=== PATIENT | male | born 1935 | race Caucasian/White ===

== ENCOUNTER 2017-03-17 21:21 | Emergency (ER) | payer MEDICARE, OTHER ==
--- NOTE | 2017-03-17 22:50 | EDM.PDOC ---
ED HPI GENERAL MEDICAL PROBLEM - General Chief Complaint: Gastrointestinal Problem Stated Complaint: NO BOWEL MOVEMENT Time Seen by Provider: 03/17/17 22:49 - History of Present Illness INITIAL COMMENTS - FREE TEXT/NARRATIVE: 81-year-old male comes in complaining of constipation. Patient had back surgery a week ago he's been using quite a few hydrocodone he' s also been using stool softeners Priya lax however has not had a bowel movement in a week. This evening he did take one and one half bottles of magnesium citrate without any improvement. The patient has crampy pain sometimes getting quite uncomfortable with this. Patient denies any fevers chills nausea vomiting. He had difficulty voiding after surgery but this is no longer a problem. lower abdomen Pain Score (Numeric/FACES): 10 - Related Data Allergies Allergy/AdvReac Type Severity Reaction Status Date / Time naproxen [From Aleve] Allergy Rash Verified 03/17/17 23:07 Home Meds: Home Meds Diazepam [Valium] 5 mg PO QID PRN 03/17/17 [History] Docusate Sodium [Stool Softener] 100 mg PO DAILY 03/17/17 [History] Hydrocodone/Acetaminophen [Hydrocodon-Acetaminophen 5-325] 1 each PO Q6H PRN [History] Levothyroxine [Synthroid] 50 mcg PO ACBREAKFAST 03/17/17 [History] Magnesium Citrate [Citrate of Magnesia] 296 ml PO ONETIME 03/17/17 [History] Polyethylene Glycol 3350 [MiraLAX] 17 gm PO DAILY 03/17/17 [History] ED ROS GENERAL - Review of Systems Review Of Systems: See Below Constitutional: Reports: No Symptoms HEENT: Reports: No Symptoms Respiratory: Reports: No Symptoms Cardiovascular: Reports: No Symptoms Endocrine: Reports: No Symptoms GI/Abdominal: Reports: Abdominal Pain, Constipation. Denies: Diarrhea, Nausea, Vomiting : Reports: No Symptoms ED EXAM, GI/ABD - Physical Exam Exam: See Below Exam Limited By: No Limitations General Appearance: Alert, No Apparent Distress Head: Atraumatic, Normocephalic Neck: Normal Inspection, Supple, Non-Tender, Full Range of Motion Respiratory/Chest: No Respiratory Distress, Lungs Clear, Normal Breath Sounds Cardiovascular: Regular Rate, Rhythm, No Edema, No Murmur GI/Abdominal Exam: Normal Bowel Sounds, Soft, Other (He has vague left lower quadrant discomfort no rigidity rebound or guarding) Course - Vital Signs Last Recorded V/S: Last Vital Signs Temp 36.6 C 03/17/17 21:40 Pulse 84 03/17/17 21:40 Resp 18 03/17/17 21:40 BP 137/68 03/17/17 21:40 Pulse Ox 94 L 03/17/17 21:40 - Orders/Labs/Meds Orders: Active Orders 24 hr Category Date Time Status Enema [RC] ASDIRECTED Care 03/17/17 23:42 Active RT Incentive Spirometry [RC] ASDIRECTED Care 03/18/17 04:35 Active Abdomen 1V Upright [CR] Stat Exams 03/18/17 01:34 Taken Abdomen 2V AP Flat Upright [CR] Stat Exams 03/17/17 23:00 Taken Abdomen Pelvis w Cont [CT] Stat Exams 03/18/17 01:52 Taken Lactated Ringers [Ringers, Lactated] 1,000 ml Med 03/18/17 02:00 Active IV ASDIRECTED Medication Orders Lactated Ringer's (Ringers, Lactated) 1,000 mls @ 125 mls/hr IV ASDIRECTED NANDA Last Admin: 03/18/17 03:56 Dose: 125 mls/hr Labs: Laboratory Tests 03/17/17 03/17/17 03/18/17 Range/Units 20:15 22:15 00:56 WBC 8.04 (4.23-9.07) K/mm3 RBC 3.32 L (4.63-6.08) M/mm3 Hgb 10.6 L (13.7-17.5) gm/L Hct 32.3 L (40.1-51.0) % MCV 97.3 H (79.0-92.2) fl MCH 31.9 (25.7-32.2) pg MCHC 32.8 (32.2-35.5) g/dl RDW Std Deviation 46.4 H (35.1-43.9) fL Plt Count 282 (163-337) K/mm3 MPV 10.1 (9.4-12.3) fl Neutrophils % (Manual) 46 (40-60) % Band Neutrophils % 0 (0-10) % Lymphocytes % (Manual) 48 H (20-40) % Atypical Lymphs % 0 % Monocytes % (Manual) 4 (2-10) % Eosinophils % (Manual) 2 (0.8-7.0) % Basophils % (Manual) 0 L (0.2-1.2) Platelet Estimate Adequate RBC Morph Comment Normal Sodium 139 (136-145) mEq/L Potassium 3.9 (3.5-5.1) mEq/L Chloride 103 (98-107) mEq/L Carbon Dioxide 29 (21-32) mEq/L Anion Gap 10.9 (5-15) BUN 14 (7-18) mg/dL Creatinine 1.2 (0.7-1.3) mg/dL Est Cr Clr Drug Dosing 53.16 mL/min Estimated GFR (MDRD) 58 (>60) mL/min BUN/Creatinine Ratio 11.7 L (14-18) Glucose 109 (83-115) mg/dL Calcium 8.7 (8.5-10.1) mg/dL Total Bilirubin 0.9 (0.2-1.0) mg/dL AST 86 H (15-37) U/L ALT 88 H (16-63) U/L Alkaline Phosphatase 305 H (46-116) U/L Total Protein 6.4 (6.4-8.2) g/dl Albumin 2.7 L (3.4-5.0) g/dl Globulin 3.7 gm/dL Albumin/Globulin Ratio 0.7 L (1-2) Urine Color Sylvia H (Yellow) Urine Appearance Clear (Clear) Urine pH 7.5 (5.0-8.0) Ur Specific Marty 1.020 (1.005-1.030) Urine Protein 1+ H (Negative) Urine Glucose (UA) Negative (Negative) Urine Ketones Negative (Negative) Urine Occult Blood Negative (Negative) Urine Nitrite Negative (Negative) Urine Bilirubin Negative (Negative) Urine Urobilinogen >=8.0 H (0.2-1.0) Ur Leukocyte Esterase Negative (Negative) Urine RBC 0-5 (0-5) /hpf Urine WBC 0-5 (0-5) /hpf Ur Epithelial Cells 0-5 (0-5) /hpf Amorphous Sediment Few H (NOT SEEN) /hpf Urine Bacteria Few (FEW) /hpf Urine Mucus Few (FEW) /hpf Meds: Medications Generic Name Dose Route Start Last Admin Trade Name Freq PRN Reason Stop Dose Admin Lactated Ringer's 1,000 mls @ 125 mls/hr 03/18/17 02:00 03/18/17 03:56 Ringers, Lactated IV 125 mls/hr ASDIRECTED NANDA Administration Discontinued Medications Generic Name Dose Route Start Last Admin Trade Name Yolanda PRN Reason Stop Dose Admin Fentanyl 50 mcg 03/18/17 01:53 03/18/17 02:30 Sublimaze IVPUSH 03/18/17 01:54 50 mcg ONETIME ONE Administration Lactated Ringer's 500 mls @ 999 mls/hr 03/18/17 01:54 03/18/17 02:30 Ringers, Lactated IV 03/18/17 02:24 999 mls/hr .BOLUS ONE Administration Iopamidol 120 ml 03/18/17 03:17 03/18/17 03:48 Isovue-300 (61%) IVPUSH 03/18/17 03:18 120 ml ONETIME ONE Administration - Re-Assessments/Exams Free Text/Narrative Re-Assessment/Exam: 03/17/17 23:06 Patient is not ill, however, he is having some discomfort, vital signs stable afebrile we will bladder scan him check a KUB and upright anticipate treatment for constipation 03/17/17 23:43 KUB and upright show multiple dilated loops of large and small bowel most likely representing an ileus he has a large amount of stool in the rectum. According to radiology distal large bowel obstruction cannot be ruled out before pursuing further imaging will try soapsuds enema. And obtain labs. 03/18/17 00:49 The patient had 2 BMs on his own initially he was reluctant to an enema he's not certain how much stool in the past it was somewhat watery with some hard chunks in it he estimates about a cup per BM he is still uncomfortable but now consents to an enema. 03/18/17 01:35 Patient had a large BM mostly liquid after the enema he is having some hip pain in his belly pain seems to be improved he was given 5 mg of Valium from his home stock as he normally takes is for spasm. His last dose was this last morning. We'll recheck KUB and upright 03/18/17 01:52 Repeat KUB not significantly better we'll pursue CAT scan 03/18/17 04:59 CAT scan showed fluid filled colon as well as mild prominent loops of small bowel bowel still consistent with an ileus also interesting note is the patient' s got small left-sided pleural effusion with atelectasis. The patient was given I asked the seem to help quite a bit as at times his saturation would drop a little bit. Patient is a large renal cyst on the left kidney. The patient recently had a very large BM and feels much better at this time. We will discharge. Prior to this BM we discussed about admission the patient really wants to go home. Case discussed with Dr. Ba will make sure the patient's getting adequate Priya lax push fluids clear liquid diet for the next 24 hours then slowly advance as tolerated. Departure - Departure Time of Disposition: 05:12 Disposition: Home, Self-Care 01 Clinical Impression: Constipation, Postoperative ileus - Discharge Information Referrals: Giovanni Barton MD [Primary Care Provider] - Forms: ED Department Discharge Additional Instructions: Return to the emergency room with any questions problems worsening symptoms. Increase the Priya lax to 1 full tablespoon in 8-10 ounces of water, take 2 glasses every morning. Continue the stool softener, Colace 100 mg 3 times a day. Clear liquid diet for the next 24 hours then slowly advance as tolerated. Decrease your Kennedy, the hydrocodone, the pain pill, to only as needed. Try a half tablet to see if this will work to decrease the overall daily dosage hydrocodone because this medication can cause severe constipation. Follow-up with your regular physician here in [facility] for recheck. Discuss with him the need for a overnight oximetry study as ear O2 saturation would drop here in the emergency room. Also discuss the small fluid collection below your left lung. And the atelectasis, or the non-expanded lung tissue seen on the CAT scan. You have been given an incentive spirometer here in the emergency room. 10 repetitions every 2 hours while awake. - My Orders Last 24 Hours: My Active Orders 03/17/17 23:00 Abdomen 2V AP Flat Upright [CR] Stat 03/17/17 23:42 Enema [RC] ASDIRECTED 03/18/17 01:34 Abdomen 1V Upright [CR] Stat 03/18/17 01:52 Abdomen Pelvis w Cont [CT] Stat 03/18/17 02:00 Lactated Ringers [Ringers, Lactated] 1,000 ml IV ASDIRECTED 03/18/17 04:35 RT Incentive Spirometry [RC] ASDIRECTED - Assessment/Plan Last 24 Hours: My Active Orders 03/17/17 23:00 Abdomen 2V AP Flat Upright [CR] Stat 03/17/17 23:42 Enema [RC] ASDIRECTED 03/18/17 01:34 Abdomen 1V Upright [CR] Stat 03/18/17 01:52 Abdomen Pelvis w Cont [CT] Stat 03/18/17 02:00 Lactated Ringers [Ringers, Lactated] 1,000 ml IV ASDIRECTED 03/18/17 04:35 RT Incentive Spirometry [RC] ASDIRECTED
[2017-03-18] MEDS ORDERED: fentaNYL 100 MCG/2 ML SDV IVPUSH ONE (01:53)
[2017-03-18] MEDS ORDERED: Lactated Ringers 500 ML IV ONE (01:54)
[2017-03-18] MEDS ORDERED: Lactated Ringers 1,000 ML IV SCH (02:00)
[2017-03-18] MEDS ORDERED: Iopamidol 612 MG/ML 150 ML Bottle IVPUSH ONE (03:17)
--- NOTE | 2017-03-18 07:08 | CT ---
CT abdomen and pelvis Technique: Multiple axial sections were obtained from above the dome of the diaphragm inferiorly through the pubic symphysis. Intravenous and oral contrast has been given. Delayed images were obtained through the bladder. Comparison: Previous abdominal x-rays performed earlier on the same day. Findings: Small left-sided pleural effusion is seen. Mild atelectasis is noted within both lung bases. Liver shows no focal parenchymal abnormality. Calcified gallstones are seen within the gallbladder. Adrenal glands show no nodule. Kidneys show no hydronephrosis. Cyst noted within the left kidney measuring approximately 6.7 cm. Pancreas is within normal limits. Aorta shows atherosclerotic change without aneurysmal dilatation. No retroperitoneal adenopathy or mesenteric abnormalities are seen. No pelvic mass or adenopathy is seen. Fluid and air noted within the colon compatible with ileus. No findings of obstruction are seen with contrast noted within the colon. No small bowel dilatation seen on this exam. Previous lumbar spine surgery is noted. Skin aguilar are present posteriorly. 3 mm stone noted within the bladder not associated with the ureters. Impression: 1. Fluid and gas within the colon compatible with ileus. No small bowel dilatation is seen on this exam. Contrast noted within the colon ruling out obstruction. 2. 3 mm calcification within the bladder. 3. Gallstones. 4. Other incidental findings as noted above. Diagnostic code #3 Agree with preliminary report issued by [facility] [employer] ([facility] preliminary report dictated on 03/18/17, 5:00 AM Central Time)
--- NOTE | 2017-03-18 07:08 | CR ---
Abdomen: Supine and upright views of the abdomen were obtained. Comparison: No prior abdominal x-ray. Dilated loops of colon and small bowel are seen. Previous lumbar spine surgery is noted. Degenerative change seen within the spine. Surgical clips seen within the pelvis. Small amount of stool noted within the rectum. No free air is seen. Skin aguilar are present. Impression: 1. Gas dilated colon as well as small bowel. Findings most likely represent ileus, please correlate if this matches clinically. 2. Other incidental findings. Diagnostic code #3 Agree with preliminary report issued by [facility] ([facility] preliminary report dictated on 03/18/17, 12:33 AM Central Time)
--- NOTE | 2017-03-18 07:08 | CR ---
Abdomen: Upright view of the abdomen was obtained. Gas dilated colon is seen as well as several slightly prominent gas-filled loops of small bowel. Air-fluid levels seen within distal small bowel. No free air is seen. Degenerative change is seen within the right hip. Midline surgical aguilar are seen. Previous lumbar spine surgery is noted. Degenerative change within the spine is seen. Calcifications are seen within the pelvis compatible with phleboliths. Impression: 1. Air-fluid levels in mildly prominent gas-filled loops of small bowel and colon. As mentioned previously, findings are most suspicious for ileus. 2. Other incidental findings. Diagnostic code #3
== END 2017-03-18 05:25 | disposition home or self-care (01) ==
LOC: JD.ED 21:21
DX: K56.7 Ileus, unspecified (principal); K59.00 Constipation, unspecified
CPT/HCPCS: 36415; 74000; 74020; 74177; 80053; 81001; 85025; 96361; 96374; 99284; J3010; J7120; Q9967

== ENCOUNTER 2018-01-29 10:22 | Inpatient (IN) | payer MEDICARE ==
[~2018-01-29 10:22] MED LIST: Acetaminophen 325 MG Tab PO SCH; Bisacodyl 5 MG Tab PO PRN; Lactated Ringers 1,000 ML IV SCH; Lidocaine 1%/Sod Bicarbonate in NS 8.4% 1 ML Syringe IDERM PRN; Magnesium Hydroxide 400 MG/5 ML Susp 30 ML Cup PO PRN; Morphine 2 MG/ML Syringe IVPUSH PRN; Naloxone 0.4 MG/ML SDV IVPUSH PRN; Ondansetron 4 MG/2 ML SDV IVPUSH PRN; Pregabalin 25 MG Cap PO SCH; Sennosides 8.6 MG Tab PO PRN; Sodium Chloride 0.9% 10 ML Syringe FLUSH PRN; oxyCODONE ER 10 MG TAB.ER PO SCH
[2018-01-29] MEDS ORDERED: Vancomycin 1 GM SDV ONE (11:24)
[2018-01-29] MEDS ORDERED: Midazolam 1 MG/ML 2 ML SDV ONE (11:25)
[2018-01-29] MEDS ORDERED: Propofol 200 MG/20 ML SDV ONE (11:29)
[2018-01-29] MEDS ORDERED: ceFAZolin 1 GM Vial ONE (11:29)
[2018-01-29] MEDS ORDERED: Dexamethasone 4 MG/ML SDV ONE ×2 (11:29→13:41)
[2018-01-29] MEDS ORDERED: fentaNYL 250 MCG/5 ML SDV ONE (11:29)
[2018-01-29] MEDS ORDERED: Lactated Ringers 1,000 ML ONE ×3 (11:29→14:01)
[2018-01-29] MEDS ORDERED: Ondansetron 4 MG/2 ML SDV ONE (11:29)
[2018-01-29] MEDS ORDERED: Lidocaine 1% 4 ML ONE (11:30)
[2018-01-29] MEDS ORDERED: Ketamine 500 mg/10 ML MDV ONE (11:30)
--- NOTE | 2018-01-29 11:50 | PCM.PREANE ---
Preanesthetic Assessment - Procedure Proposed Procedure: Right total hip arthroplasty with bilateral ankle cortisone injections - Anesthesia/Transfusion/Family Hx Anesthesia History: Prior Anesthesia Without Reaction Family History of Anesthesia Reaction: No Transfusion History: No Prior Transfusion(s) Additional History: Lubmosacral spinal stenosis - Review of Systems General: No Symptoms Pulmonary: No Symptoms Cardiovascular: Other (CAD indicated from high CT CA++ score, stress test in 2014 negative, EF 65%) Gastrointestinal: No Symptoms Neurological: Weakness (bilateral equal leg weakness from prior to back surgery ), Other (Lumbar fusion in 2017, scoliosis, Lumbosarcal spinal stenosis ) Other: Reports: None, Thyroid Problems (hypothyroid ) - Physical Assessment NPO Status Date: 01/29/18 NPO Status Time: 03:00 Pulse: 66 O2 Sat by Pulse Oximetry: 92 Respiratory Rate: 20 Blood Pressure: 139/90 Temperature: 36.9 C Height: 1.78 m Weight: 106.594 kg ASA Class: 3 Mental Status: Alert & Oriented x3 Airway Class: Mallampati = 3 Dentition: Reports: Normal Dentition, Implants (5 upper implants including ) Thyro-Mental Finger Breadths: 3 Mouth Opening Finger Breadths: 3 ROM/Head Extension: Full Lungs: Clear to Auscultation, Normal Respiratory Effort Cardiovascular: Regular Rate, Regular Rhythm - Lab Values: Laboratory Last Values C-Reactive Protein 0.6 mg/dL (<1.0) 01/22/18 13:53 MRSA (PCR) Negative 01/13/18 16:20 - Allergies Allergies/Adverse Reactions: Allergies Allergy/AdvReac Type Severity Reaction Status Date / Time naproxen [From Aleve] Allergy Rash Verified 03/17/17 23:07 - Blood Blood Available: No Product(s) Available: None - Anesthesia Plan Pre-Op Medication Ordered: None - Acknowledgements Anesthesia Type Planned: General Anesthesia (per patient request. Also will use coude urinary catheter if possible. ) Pt an Appropriate Candidate for the Planned Anesthesia: Yes Alternatives and Risks of Anesthesia Discussed w Pt/Guardian: Yes Pt/Guardian Understands and Agrees with Anesthesia Plan: Yes PreAnesthesia Questionnaire - Past Health History Medical/Surgical History: Denies Medical/Surgical History Musculoskeletal History: Reports: Back Pain, Chronic Endocrine/Metabolic History: Reports: Hypothyroidism - Past Surgical History Musculoskeletal Surgical History: Reports: Knee Replacement, Other (See Below) Other Musculoskeletal Surgeries/Procedures:: back surgery 03/11/17 - HOME MEDS Home Medications: Home Meds Diazepam [Valium] 5 mg PO QID PRN 03/17/17 [History] Docusate Sodium [Stool Softener] 100 mg PO DAILY 03/17/17 [History] Hydrocodone/Acetaminophen [Hydrocodon-Acetaminophen 5-325] 1 each PO Q6H PRN [History] Levothyroxine [Synthroid] 50 mcg PO ACBREAKFAST 03/17/17 [History] Magnesium Citrate [Citrate of Magnesia] 296 ml PO ONETIME 03/17/17 [History] Polyethylene Glycol 3350 [MiraLAX] 17 gm PO DAILY 03/17/17 [History] - CURRENT (IN HOUSE) MEDS Current Meds: Current Medications Acetaminophen (Tylenol) 975 mg PO ONETIME [facility] Stop: 01/29/18 18:00 Bisacodyl (Dulcolax) 5 mg PO DAILY PRN PRN Reason: Constipation Morphine Sulfate 8 mg/Epinephrine HCl 0.3 mg/Cefuroxime Sodium 750 mg/Sodium Chloride 27.9 ml 0 mg .XX ONETIME ONE Stop: 01/29/18 12:31 Cyclobenzaprine HCl (Flexeril) 10 mg PO TID PRN PRN Reason: Spasms Docusate Sodium (Colace) 100 mg PO BID NANDA Famotidine (Pepcid) 20 mg PO Q12H [facility] Lactated Ringer's (Ringers, Lactated) 1,000 mls @ 125 mls/hr IV ASDIRECTED [facility] Last Admin: 01/29/18 11:10 Dose: 125 mls/hr Cefazolin Sodium/Dextrose 2 gm (/ Premix) 50 mls @ 100 mls/hr IV Q8H [facility] Stop: 01/29/18 23:14 Lidocaine/Sodium Bicarbonate (Buffered Lidocaine 1% In Ns 8.4%) 0.25 ml IDERM ONETIME PRN PRN Reason: Prior to IV Start Stop: 01/29/18 16:00 Last Admin: 01/29/18 11:09 Dose: 0.25 ml Magnesium Hydroxide (Milk Of Magnesia) 30 ml PO BID PRN PRN Reason: Constipation Morphine Sulfate (Morphine) 2 mg IVPUSH Q2H PRN PRN Reason: Breakthrough Pain Naloxone HCl (Narcan) 0.1 mg IVPUSH Q5M PRN PRN Reason: Oversedation Ondansetron HCl (Zofran) 4 mg IVPUSH Q6H PRN PRN Reason: Nausea/Vomiting Oxycodone HCl (Oxycontin) 10 mg PO ONETIME [facility] Stop: 01/29/18 16:00 Oxycodone/Acetaminophen (Percocet 325-5 Mg) 1 - 2 tab PO Q4H PRN PRN Reason: Pain Pregabalin (Lyrica) 50 mg PO ONETIME [facility] Stop: 01/29/18 16:00 Rivaroxaban (Xarelto) 10 mg PO DAILY [facility] Senna (Senna) 8.6 mg PO BID PRN PRN Reason: Constipation Sodium Chloride (Saline Flush) 10 ml FLUSH ASDIRECTED PRN PRN Reason: Keep Vein Open Discontinued Medications Bupivacaine HCl (Marcaine 0.25%) Confirm Administered Dose 30 ml .ROUTE .STK- MED ONE Stop: 01/29/18 11:25 Cefazolin Sodium (Ancef) Confirm Administered Dose 2 gm .ROUTE .STK-MED ONE Stop: 01/29/18 11:25 Cefazolin Sodium (Ancef) Confirm Administered Dose 2 gm .ROUTE .STK-MED ONE Stop: 01/29/18 11:30 Dexamethasone (Dexamethasone) Confirm Administered Dose 4 mg .ROUTE .STK-MED ONE Stop: 01/29/18 11:30 Fentanyl (Sublimaze) Confirm Administered Dose 250 mcg .ROUTE .STK-MED ONE Stop: 01/29/18 11:30 Lactated Ringer's (Ringers, Lactated) Confirm Administered Dose 1,000 mls @ as directed .ROUTE .STK-MED ONE Stop: 01/29/18 11:30 Lidocaine HCl (Xylocaine-Mpf 1%) Confirm Administered Dose 4 mls @ as directed .ROUTE .STK-MED ONE Stop: 01/29/18 11:31 Iodine (Iodine 2% Mild Tincture) Confirm Administered Dose 30 ml .ROUTE .STK- MED ONE Stop: 01/29/18 11:25 Ketamine HCl (Ketalar) Confirm Administered Dose 500 mg .ROUTE .STK-MED ONE Stop: 01/29/18 11:31 Midazolam HCl (Versed 1 Mg/Ml) Confirm Administered Dose 2 mg .ROUTE .STK-MED ONE Stop: 01/29/18 11:26 Ondansetron HCl (Zofran) Confirm Administered Dose 4 mg .ROUTE .STK-MED ONE Stop: 01/29/18 11:30 Propofol (Diprivan 20 Ml) Confirm Administered Dose 400 mg .ROUTE .STK-MED ONE Stop: 01/29/18 11:30 Tranexamic Acid (Cyklokapron) Confirm Administered Dose 1,000 mg .ROUTE .STK- MED ONE Stop: 01/29/18 11:25 Vancomycin HCl (Vancomycin) Confirm Administered Dose 1 gm .ROUTE .STK-MED ONE Stop: 01/29/18 11:25
[2018-01-29] MEDS ORDERED: HYDROmorphone 0.5 MG/0.5 ML Syringe ONE ×2 (12:07→13:40)
[2018-01-29] MEDS ORDERED: Phenylephrine/Normal Saline 100 MCG/ML 10 ML Syringe ONE (13:40)
[2018-01-29] MEDS ORDERED: ePHEDrine/Normal Saline 25 MG/5 ML Syringe ONE ×2 (13:41→13:54)
[2018-01-29] MEDS ORDERED: Albuterol 6.7 GM Inhaler INH ONE (13:41)
[2018-01-29] MEDS ORDERED: Ondansetron 4 MG/2 ML SDV IVPUSH PRN (13:50)
[2018-01-29] MEDS ORDERED: fentaNYL 100 MCG/2 ML SDV IVPUSH PRN (13:50)
[2018-01-29] MEDS ORDERED: Albuterol 0.083% 2.5 MG/3 ML Neb Soln NEB PRN (13:50)
[2018-01-29] MEDS ORDERED: HYDROmorphone 0.5 MG/0.5 ML Syringe IVPUSH PRN (13:50)
[2018-01-29] MEDS ORDERED: diphenhydrAMINE 50 MG/ML SDV IVPUSH PRN (13:50)
[2018-01-29] MEDS: Bupivacaine 0.25% 30 ML SDV ONE ×4 (13:52→14:42)
[2018-01-29] MEDS: ceFAZolin 1 GM Vial ONE ×2 (13:53→14:11)
[2018-01-29] MEDS: Iodine/Sodium Iodide 2% Tincture 30 ML Bottle ONE ×2 (13:53→14:10)
[2018-01-29] MEDS: Morphine 8 MG, EPINEPHrine 0.3 MG, Cefuroxime 750 MG, Sodium Chloride 0.9% 27.9 ML ONE ×8 (13:57→14:16)
[2018-01-29] MEDS: Triamcinolone Acetonide 40 MG/ML 1 ML MDV ONE ×2 (13:59→14:42)
[2018-01-29] MEDS ORDERED: Hetastarch in NS 500 ML ONE (14:10)
[2018-01-29] MEDS ORDERED: Polyethylene Glycol 3350 Powder 17 GM Packet PO PRN (14:50)
--- NOTE | 2018-01-29 14:58 | PCM.POSTAN ---
POST ANESTHESIA ASSESSMENT - MENTAL STATUS Mental Status: Alert, Oriented - VITAL SIGNS Pulse Rate: 87 SaO2: 94 Resp Rate: 19 Blood Pressure: 131/71 Temperature: 36.7 C - RESPIRATORY Respiratory Status: Respiratory Rate WNL, Airway Patent, O2 Saturation Stable, Supplemental Oxygen - CARDIOVASCULAR CV Status: Pulse Rate WNL, Blood Pressure Stable - GASTROINTESTINAL GI Status: No Symptoms - PAIN Pain Score: 0 - POST OP HYDRATION Hydration Status: Adequate & Stable
[2018-01-29] MEDS ORDERED: Sildenafil 20 MG Tab PO SCH (15:00)
--- NOTE | 2018-01-29 15:51 | PCM.CONS ---
H&P History of Present Illness - General Date of Service: 01/29/18 Admit Problem/Dx: Admission Diagnosis/Problem Admission Diagnosis/Problem Osteoarthritis of hip Source of Information: Patient, Old Records, Provider History Limitations: Reports: No Limitations - History of Present Illness Initial Comments - Free Text/Narative: Hussein is an 82 yo male patient of Dr. Bailey who is post-operative day 0 of R HUI. Hospital medicine was consulted for post-operative medical care. At this time he is resting comfortably in bed. Pain is controlled. He denies any chest pain, shortness of breath, palpitations, nausea, or vomiting. He carries a history of : OA, Spinal Stenosis, Elevated PSA, Hypothyroid, HLD, LAD, Scoliosis. He is a nonsmoker. He is a full code. His primary care provider is Dr. Barton. Right Hip Pain Score (Numeric/FACES): 0 - Related Data Allergies/Adverse Reactions: Allergies Allergy/AdvReac Type Severity Reaction Status Date / Time naproxen [From Aleve] Allergy Rash Verified 03/17/17 23:07 Home Medications: Home Meds Hydrocodone/Acetaminophen [Hydrocodon-Acetaminophen 5-325] 1 each PO Q6H PRN [History] Levothyroxine [Synthroid] 50 mcg PO ACBREAKFAST 03/17/17 [History] Acetaminophen [Tylenol] 650 mg PO ASDIRECTED PRN 01/29/18 [History] Aspirin [Halfprin] 81 mg PO DAILY 01/29/18 [History] Polyethylene Glycol 3350 [Miralax] 1 dose PO DAILY PRN 01/29/18 [History] Sildenafil Citrate [Sildenafil] 100 mg PO ASDIRECTED 01/29/18 [History] Past Medical History - Past Health History Medical/Surgical History: Denies Medical/Surgical History Cardiovascular History: Reports: CAD, High Cholesterol Genitourinary History: Reports: Prostate Disorder Other Genitourinary History: elevated psa Musculoskeletal History: Reports: Back Pain, Chronic Endocrine/Metabolic History: Reports: Hypothyroidism - Past Surgical History Musculoskeletal Surgical History: Reports: Knee Replacement, Other (See Below) Other Musculoskeletal Surgeries/Procedures:: back surgery 03/11/17 Social & Family History - Family History Family Medical History: Noncontributory - Caffeine Use Caffeine Use: Reports: Coffee H&P Review of Systems - Review of Systems: Review Of Systems: See Below General: Reports: No Symptoms. Denies: Fever, Chills HEENT: Reports: No Symptoms Pulmonary: Reports: No Symptoms. Denies: Shortness of Breath, Cough Cardiovascular: Reports: No Symptoms. Denies: Chest Pain, Palpitations, Blood Pressure Problem Gastrointestinal: Reports: No Symptoms Genitourinary: Reports: No Symptoms. Denies: Dysuria, Frequency, Burning, Pain Musculoskeletal: Reports: No Symptoms. Denies: Leg Pain, Joint Pain Skin: Reports: No Symptoms Psychiatric: Reports: No Symptoms Neurological: Reports: Numbness (s/p R HUI), Tingling (s/p R HUI), Difficulty Walking (s/p R HUI). Denies: Weakness Hematologic/Lymphatic: Reports: No Symptoms Immunologic: Reports: No Symptoms Exam - Exam Exam: See Below - Vital Signs Vital Signs: Last Vital Signs Temp 98.1 F 01/29/18 15:30 Pulse 66 01/29/18 15:30 Resp 10 L 01/29/18 15:30 BP 130/71 01/29/18 15:30 Pulse Ox 96 01/29/18 15:30 Weight: 238 lb - Exam Quality Assessment: Supplemental Oxygen (4L NC), DVT Prophylaxis General: Alert, Oriented, Cooperative, Mild Distress HEENT: PERRLA, Hearing Intact, Mucosa Moist & [place], Nares Patent, Normal Nasal Septum, Posterior Pharynx Clear, Conjunctiva Clear, EOMI, EACs Clear, TMs Clear Neck: Supple, Trachea Midline, 2 Lungs: Clear to Auscultation, Normal Respiratory Effort Cardiovascular: Regular Rate, Regular Rhythm GI/Abdominal Exam: Normal Bowel Sounds, Soft, Non-Tender, No Organomegaly, No Distention, No Abnormal Bruit, No Mass, Pelvis Stable (Male) Exam: Deferred Rectal (Males) Exam: Deferred Back Exam: Normal Inspection, Decreased Range of Motion (h/o scoliosis and Spinal stenosis), Other (Scoliosis) Extremities: Normal Inspection, Non-Tender, No Pedal Edema, Normal Capillary Refill, Limited Range of Motion (s/p R HUI) Peripheral Pulses: 2+: Posterior Tibial (L), Posterior Tibial (R), Dorsalis Pedis (L), Dorsalis Pedis (R) Skin: Warm, Dry, Intact, Other (bandage dry and intact) Neurological: Cranial Nerves Intact (grossly), Abnormal Gait (s/p R HUI) Neuro Extensive - Mental Status: Alert, Oriented x3, Normal Mood/Affect, Normal Cognition Psychiatric: Alert, Normal Affect, Normal Mood - Patient Data Lab Results Last 24 hrs: Laboratory Results - last 24 hr 01/29/18 Range/Units 11:08 Blood Type A NEGATIVE Gel Antibody Screen Negative Consult PN Assessment/Plan POD#: 0 Procedures: Procedures COMPLETE CBC W/AUTO DIFF WBC (03/17/17) COMPREHEN METABOLIC PANEL (03/17/17) CT ABD & PELV W/CONTRAST (03/17/17) EMERGENCY DEPT VISIT (03/17/17) HYDRATE IV INFUSION ADD-ON (03/17/17) ROUTINE VENIPUNCTURE (03/17/17) THER/PROPH/DIAG INJ IV PUSH (03/17/17) URINALYSIS AUTO W/O SCOPE (11/30/14) URINALYSIS AUTO W/SCOPE (03/17/17) X-RAY EXAM OF ABDOMEN (03/17/17) X-RAY EXAM OF ABDOMEN (03/17/17) (1) Status post total replacement of right hip SNOMED Code(s): 606827945000, 877767035806 Code(s): Z96.641 - PRESENCE OF RIGHT ARTIFICIAL HIP JOINT Priority: High Current Visit: Yes (2) Osteoarthritis SNOMED Code(s): 606217903 Code(s): M19.90 - UNSPECIFIED OSTEOARTHRITIS, UNSPECIFIED SITE Priority: High Current Visit: Yes Qualifiers: Osteoarthritis location: unspecified site Osteoarthritis type: unspecified Qualified Code(s): M19.90 - Unspecified osteoarthritis, unspecified site (3) Spinal stenosis SNOMED Code(s): 62123541 Code(s): M48.00 - SPINAL STENOSIS, SITE UNSPECIFIED Priority: Low Current Visit: Yes Qualifiers: Neurogenic claudication status: unspecified (4) PSA elevation SNOMED Code(s): 096443389 Code(s): R97.20 - ELEVATED PROSTATE SPECIFIC ANTIGEN [PSA] Priority: Low Current Visit: No (5) Hypothyroid SNOMED Code(s): 52071161 Code(s): E03.9 - HYPOTHYROIDISM, UNSPECIFIED Priority: Medium Current Visit: Yes Qualifiers: Hypothyroidism type: unspecified Qualified Code(s): E03.9 - Hypothyroidism , unspecified (6) HLD (hyperlipidemia) SNOMED Code(s): 33354082 Code(s): E78.5 - HYPERLIPIDEMIA, UNSPECIFIED Priority: Medium Current Visit: Yes Qualifiers: Hyperlipidemia type: unspecified Qualified Code(s): E78.5 - Hyperlipidemia , unspecified (7) Scoliosis SNOMED Code(s): 649163507 Code(s): M41.9 - SCOLIOSIS, UNSPECIFIED Priority: Low Current Visit: Yes Qualifiers: Scoliosis type: unspecified scoliosis Spinal region: unspecified Qualified Code(s): M41.9 - Scoliosis, unspecified Problem List Initiated/Reviewed/Updated: Yes Plan: I/P: Acute: S/P Right total hip arthroplasty - post-operative day 0 -DVT prophylaxis and pain management per primary care team -PT/OT -IS/RT -Monitor oxygen saturation -Titrate oxygen as needed -Vital signs stable -Monitor labs -Pre-operative Hgb was 15.7 Osteoarthritis -Pain management per primary care team Chronic: OA Spinal Stenosis Elevated PSA Hypothyroid HLD LAD Scoliosis Plan: CM for discharge planning GI prophylaxis Home medications as indicated Other orders as listed above Routine AM labs He is a full code. His PCP is Dr. Barton Thank you for allowing us to participate in the care of this patient!!
[2018-01-29] MEDS: Acetaminophen/oxyCODONE 325-5 MG Tab PO PRN (18:44)
[2018-01-29] MEDS: ceFAZolin 2 GM in Premix Bag 1 BAG IV SCH (18:45)
[2018-01-29] MEDS: Famotidine 20 MG Tab PO SCH (20:56)
[2018-01-29] MEDS: Cyclobenzaprine 10 MG Tab PO PRN (20:56)
[2018-01-29] MEDS: Docusate Sodium 100 MG Cap PO SCH (20:56)
[2018-01-30] MEDS: Cyclobenzaprine 10 MG Tab PO PRN (03:57)
[2018-01-30] MEDS: Acetaminophen/oxyCODONE 325-5 MG Tab PO PRN ×2 (03:58→10:21)
[2018-01-30] MEDS: ceFAZolin 2 GM in Premix Bag 1 BAG IV SCH ×3 (04:01→10:30)
[2018-01-30] MEDS ORDERED: Levothyroxine 50 MCG Tab PO SCH (06:00)
--- NOTE | 2018-01-30 06:55 | PCM.CONSN ---
- General Info Date of Service: 01/30/18 Admission Dx/Problem (Free Text): Admission Diagnosis/Problem Admission Diagnosis/Problem Osteoarthritis of hip Subjective Update: In to see Hussein. He is sitting on the edge of the bed having breakfast. He has changed into his street clothes. He has no concerns or complaints. No nursing concerns. Functional Status: Reports: Pain Controlled, Tolerating Diet, Ambulating, Urinating. Denies: New Symptoms - Review of Systems General: Reports: No Symptoms. Denies: Fever, Weakness, Fatigue, Malaise HEENT: Reports: No Symptoms. Denies: Sore Throat Pulmonary: Reports: No Symptoms. Denies: Shortness of Breath, Pleuritic Chest Pain, Cough, Sputum, Wheezing Cardiovascular: Reports: No Symptoms. Denies: Chest Pain, Palpitations Gastrointestinal: Reports: No Symptoms. Denies: Abdominal Pain, Constipation, Diarrhea, Nausea, Vomiting Genitourinary: Reports: No Symptoms Musculoskeletal: Reports: Leg Pain Skin: Reports: No Symptoms Neurological: Reports: No Symptoms. Denies: Confusion Psychiatric: Reports: No Symptoms - Patient Data Vitals - Most Recent: Last Vital Signs Temp 97.3 F 01/30/18 03:49 Pulse 68 01/30/18 03:49 Resp 20 01/30/18 03:49 BP 109/65 01/30/18 03:49 Pulse Ox 93 L 01/30/18 03:49 Weight - Most Recent: 245 lb 1.6 oz I&O - Last 24 Hours: Intake & Output 01/29/18 01/29/18 01/30/18 14:59 22:59 06:59 Intake Total 350 450 Output Total 200 400 Balance -200 350 50 Lab Results Last 24 Hours: Laboratory Results - last 24 hr 01/29/18 01/30/18 Range/Units 11:08 05:25 WBC 13.77 H (4.23-9.07) K/mm3 RBC 3.97 L (4.63-6.08) M/mm3 Hgb 12.4 L (13.7-17.5) gm/L Hct 38.6 L (40.1-51.0) % MCV 97.2 H (79.0-92.2) fl MCH 31.2 (25.7-32.2) pg MCHC 32.1 L (32.2-35.5) g/dl RDW Std Deviation 50.0 H (35.1-43.9) fL Plt Count 186 (163-337) K/mm3 MPV 10.4 (9.4-12.3) fl Blood Type A NEGATIVE Gel Antibody Screen Negative Med Orders - Current: Current Medications Aspirin (Halfprin) 81 mg PO DAILY [facility] Bisacodyl (Dulcolax) 5 mg PO DAILY PRN PRN Reason: Constipation Cyclobenzaprine HCl (Flexeril) 10 mg PO TID PRN PRN Reason: Spasms Last Admin: 01/30/18 03:57 Dose: 10 mg Docusate Sodium (Colace) 100 mg PO BID [facility] Last Admin: 01/29/18 20:56 Dose: 100 mg Famotidine (Pepcid) 20 mg PO Q12H [facility] Last Admin: 01/29/18 20:56 Dose: 20 mg Cefazolin Sodium/Dextrose 2 gm (/ Premix) 50 mls @ 100 mls/hr IV Q8H [facility] Stop: 01/30/18 11:59 Last Admin: 01/30/18 04:01 Dose: 100 mls/hr Levothyroxine Sodium (Synthroid) 50 mcg PO ACBREAKFAST [facility] Last Admin: 01/30/18 05:57 Dose: 50 mcg Magnesium Hydroxide (Milk Of Magnesia) 30 ml PO BID PRN PRN Reason: Constipation Morphine Sulfate (Morphine) 2 mg IVPUSH Q2H PRN PRN Reason: Breakthrough Pain Naloxone HCl (Narcan) 0.1 mg IVPUSH Q5M PRN PRN Reason: Oversedation Ondansetron HCl (Zofran) 4 mg IVPUSH Q6H PRN PRN Reason: Nausea/Vomiting Oxycodone/Acetaminophen (Percocet 325-5 Mg) 1 - 2 tab PO Q4H PRN PRN Reason: Pain Last Admin: 01/30/18 03:58 Dose: 2 tab Polyethylene Glycol (Miralax) 17 gm PO DAILY PRN PRN Reason: Constipation Rivaroxaban (Xarelto) 10 mg PO DAILY [facility] Senna (Senna) 8.6 mg PO BID PRN PRN Reason: Constipation Sodium Chloride (Saline Flush) 10 ml FLUSH ASDIRECTED PRN PRN Reason: Keep Vein Open Discontinued Medications Acetaminophen (Tylenol) 975 mg PO ONETIME [facility] Stop: 01/29/18 18:00 Last Admin: 01/29/18 12:20 Dose: 975 mg Albuterol (Proventil Hfa) Confirm Administered Dose 6.7 gm INH .STK-MED ONE Stop: 01/29/18 13:42 Albuterol (Proventil Neb Soln) 2.5 mg NEB ONETIME PRN PRN Reason: Shortness of Breath Stop: 01/29/18 16:00 Bupivacaine HCl (Marcaine 0.25%) Confirm Administered Dose 30 ml .ROUTE .STK- MED ONE Stop: 01/29/18 11:25 Last Admin: 01/29/18 14:18 Dose: 30 ml Bupivacaine HCl (Marcaine 0.25%) Confirm Administered Dose 30 ml .ROUTE .STK- MED ONE Stop: 01/29/18 11:44 Last Admin: 01/29/18 14:42 Dose: 4 ml Cefazolin Sodium (Ancef) Confirm Administered Dose 2 gm .ROUTE .STK-MED ONE Stop: 01/29/18 11:25 Last Admin: 01/29/18 14:11 Dose: 2 gm Cefazolin Sodium (Ancef) Confirm Administered Dose 2 gm .ROUTE .STK-MED ONE Stop: 01/29/18 11:30 Morphine Sulfate 8 mg/Epinephrine HCl 0.3 mg/Cefuroxime Sodium 750 mg/Sodium Chloride 27.9 ml 0 mg .XX ONETIME ONE Stop: 01/29/18 12:31 Last Admin: 01/29/18 14:16 Dose: 758.3 mg Dexamethasone (Dexamethasone) Confirm Administered Dose 4 mg .ROUTE .STK-MED ONE Stop: 01/29/18 11:30 Dexamethasone (Dexamethasone) Confirm Administered Dose 4 mg .ROUTE .STK-MED ONE Stop: 01/29/18 13:42 Diphenhydramine HCl (Benadryl) 25 mg IVPUSH Q6H PRN PRN Reason: Pruritis Stop: 01/29/18 16:00 Ephedrine Sulfate (Ephedrine In Ns) Confirm Administered Dose 25 mg .ROUTE .STK- MED ONE Stop: 01/29/18 13:42 Ephedrine Sulfate (Ephedrine In Ns) Confirm Administered Dose 25 mg .ROUTE .STK- MED ONE Stop: 01/29/18 13:55 Fentanyl (Sublimaze) Confirm Administered Dose 250 mcg .ROUTE .STK-MED ONE Stop: 01/29/18 11:30 Fentanyl (Sublimaze) 50 mcg IVPUSH Q5M PRN PRN Reason: Pain Stop: 01/29/18 16:00 Last Admin: 01/29/18 15:17 Dose: 50 mcg Hydromorphone HCl (Dilaudid) Confirm Administered Dose 0.5 mg .ROUTE .STK-MED ONE Stop: 01/29/18 12:08 Hydromorphone HCl (Dilaudid) Confirm Administered Dose 0.5 mg .ROUTE .STK-MED ONE Stop: 01/29/18 13:41 Hydromorphone HCl (Dilaudid) 0.5 mg IVPUSH ASDIRECTED PRN PRN Reason: Severe Pain Stop: 01/29/18 16:00 Lactated Ringer's (Ringers, Lactated) 1,000 mls @ 125 mls/hr IV ASDIRECTED NANDA Last Admin: 01/29/18 11:10 Dose: 125 mls/hr Lactated Ringer's (Ringers, Lactated) Confirm Administered Dose 1,000 mls @ as directed .ROUTE .STK-MED ONE Stop: 01/29/18 11:30 Lidocaine HCl (Xylocaine-Mpf 1%) Confirm Administered Dose 4 mls @ as directed .ROUTE .STK-MED ONE Stop: 01/29/18 11:31 Lactated Ringer's (Ringers, Lactated) Confirm Administered Dose 1,000 mls @ as directed .ROUTE .STK-MED ONE Stop: 01/29/18 14:02 Lactated Ringer's (Ringers, Lactated) Confirm Administered Dose 1,000 mls @ as directed .ROUTE .STK-MED ONE Stop: 01/29/18 14:02 Hetastarch/Sodium Chloride (Hetastarch 6% In Normal Saline) Confirm Administered Dose 500 mls @ as directed .ROUTE .STK-MED ONE Stop: 01/29/18 14:11 Iodine (Iodine 2% Mild Tincture) Confirm Administered Dose 30 ml .ROUTE .STK- MED ONE Stop: 01/29/18 11:25 Last Admin: 01/29/18 14:10 Dose: 18 ml Ketamine HCl (Ketalar) Confirm Administered Dose 500 mg .ROUTE .STK-MED ONE Stop: 01/29/18 11:31 Lidocaine/Sodium Bicarbonate (Buffered Lidocaine 1% In Ns 8.4%) 0.25 ml IDERM ONETIME PRN PRN Reason: Prior to IV Start Stop: 01/29/18 16:00 Last Admin: 01/29/18 11:09 Dose: 0.25 ml Midazolam HCl (Versed 1 Mg/Ml) Confirm Administered Dose 2 mg .ROUTE .STK-MED ONE Stop: 01/29/18 11:26 Ondansetron HCl (Zofran) Confirm Administered Dose 4 mg .ROUTE .STK-MED ONE Stop: 01/29/18 11:30 Ondansetron HCl (Zofran) 4 mg IVPUSH ONETIME PRN PRN Reason: Nausea/Vomiting Stop: 01/29/18 16:00 Oxycodone HCl (Oxycontin) 10 mg PO ONETIME NANDA Stop: 01/29/18 16:00 Last Admin: 01/29/18 12:19 Dose: 10 mg Phenylephrine HCl (Phenylephrine In Ns 100 Mcg/Ml) Confirm Administered Dose 1 mg .ROUTE .STK-MED ONE Stop: 01/29/18 13:41 Pregabalin (Lyrica) 50 mg PO ONETIME [facility] Stop: 01/29/18 16:00 Last Admin: 01/29/18 12:20 Dose: 50 mg Propofol (Diprivan 20 Ml) Confirm Administered Dose 400 mg .ROUTE .STK-MED ONE Stop: 01/29/18 11:30 Sildenafil Citrate (Revatio) 100 mg PO ASDIRECTED [facility] Tranexamic Acid (Cyklokapron) Confirm Administered Dose 1,000 mg .ROUTE .STK- MED ONE Stop: 01/29/18 11:25 Last Admin: 01/29/18 14:20 Dose: 1,000 mg Triamcinolone Acetonide (Kenalog-40) Confirm Administered Dose 80 mg .ROUTE .STK -MED ONE Stop: 01/29/18 11:44 Last Admin: 01/29/18 14:42 Dose: 80 mg Vancomycin HCl (Vancomycin) Confirm Administered Dose 1 gm .ROUTE .STK-MED ONE Stop: 01/29/18 11:25 - Exam Quality Assessment: DVT Prophylaxis General: Alert, Oriented, Cooperative, No Acute Distress HEENT: Pupils Equal, Pupils Reactive, EOMI, Mucous Membr. Moist/[place] Neck: Supple, Trachea Midline, No JVD Lungs: Clear to Auscultation, Normal Respiratory Effort Cardiovascular: Regular Rate, Regular Rhythm GI/Abdominal Exam: Normal Bowel Sounds, Soft, Non-Tender, No Distention, No Abnormal Bruit, Pelvis Stable (Male) Exam: Deferred Back Exam: Normal Inspection, Full Range of Motion Extremities: Normal Inspection, Normal Range of Motion, Non-Tender, No Pedal Edema, Normal Capillary Refill Peripheral Pulses: 3+: Radial (L), Radial (R), Dorsalis Pedis (L), Dorsalis Pedis (R) Skin: Warm, Dry, Intact Wound/Incisions: Dressing Dry and Intact, No Drainage Neurological: No New Focal Deficit Psy/Mental Status: Alert, Normal Affect, Normal Mood Consult PN Assessment/Plan POD#: 1 Procedures: Procedures COMPLETE CBC W/AUTO DIFF WBC (03/17/17) COMPREHEN METABOLIC PANEL (03/17/17) CT ABD & PELV W/CONTRAST (03/17/17) EMERGENCY DEPT VISIT (03/17/17) HYDRATE IV INFUSION ADD-ON (03/17/17) ROUTINE VENIPUNCTURE (03/17/17) THER/PROPH/DIAG INJ IV PUSH (03/17/17) URINALYSIS AUTO W/O SCOPE (11/30/14) URINALYSIS AUTO W/SCOPE (03/17/17) X-RAY EXAM OF ABDOMEN (03/17/17) X-RAY EXAM OF ABDOMEN (03/17/17) (1) Status post total replacement of right hip SNOMED Code(s): 074457802154, 553915084445 Code(s): Z96.641 - PRESENCE OF RIGHT ARTIFICIAL HIP JOINT Priority: High Current Visit: Yes (2) Osteoarthritis SNOMED Code(s): 208048526 Code(s): M19.90 - UNSPECIFIED OSTEOARTHRITIS, UNSPECIFIED SITE Priority: High Current Visit: Yes Qualifiers: Osteoarthritis location: hip Osteoarthritis type: primary Laterality: right Qualified Code(s): M16.11 - Unilateral primary osteoarthritis, right hip (3) HLD (hyperlipidemia) SNOMED Code(s): 34886589 Code(s): E78.5 - HYPERLIPIDEMIA, UNSPECIFIED Priority: Medium Current Visit: Yes Qualifiers: Hyperlipidemia type: unspecified Qualified Code(s): E78.5 - Hyperlipidemia , unspecified (4) Hypothyroid SNOMED Code(s): 45407226 Code(s): E03.9 - HYPOTHYROIDISM, UNSPECIFIED Priority: Medium Current Visit: Yes Qualifiers: Hypothyroidism type: unspecified Qualified Code(s): E03.9 - Hypothyroidism , unspecified (5) Scoliosis SNOMED Code(s): 439801270 Code(s): M41.9 - SCOLIOSIS, UNSPECIFIED Priority: Low Current Visit: Yes Qualifiers: Scoliosis type: unspecified scoliosis Spinal region: unspecified Qualified Code(s): M41.9 - Scoliosis, unspecified (6) Spinal stenosis SNOMED Code(s): 54223268 Code(s): M48.00 - SPINAL STENOSIS, SITE UNSPECIFIED Priority: Low Current Visit: Yes Qualifiers: Neurogenic claudication status: unspecified (7) Constipation SNOMED Code(s): 78321850 Code(s): K59.00 - CONSTIPATION, UNSPECIFIED Priority: Medium Current Visit: No Qualifiers: Constipation type: unspecified constipation type Qualified Code(s): K59.00 - Constipation, unspecified (8) PSA elevation SNOMED Code(s): 478946429 Code(s): R97.20 - ELEVATED PROSTATE SPECIFIC ANTIGEN [PSA] Priority: Low Current Visit: No Problem List Initiated/Reviewed/Updated: Yes Plan: I/P: Acute: S/P Right total hip arthroplasty - post-operative day 1 -DVT prophylaxis and pain management per primary care team -PT/OT -IS/RT -Monitor oxygen saturation -Titrate oxygen as needed -Vital signs stable -Monitor labs -Pre-operative Hgb was 15.7, now 12.4 -Pre-operative GFR was 64, now 58 Osteoarthritis -Pain management per primary care team S/P Bilateral ankle cortisone injections -Management per primary care team Chronic: OA Spinal Stenosis Elevated PSA Hypothyroid HLD LAD Scoliosis Plan: CM for discharge planning GI prophylaxis Home medications as indicated Other orders as listed above Routine AM labs He is a full code. His PCP is Dr. Barton Overall from a hospitalist standpoint Hussein is doing well. Pain is controlled. He has been working with therapies and is doing well. He is off O2 and has urinated. Labs and vital signs look good. He is cleared for discharge pending primary team and PT/OT approval. Thank you for allowing us to participate in the care of this patient!!
--- NOTE | 2018-01-30 07:22 | CR ---
Pelvis and right hip: AP view of the pelvis was obtained as well as lateral view of the right hip. Comparison: No prior pelvis or right hip exam. Previous lumbar spine surgery is noted. Catheter seen within the bladder. Two surgical clips are seen within the right pelvis. Right hip prosthesis is noted. Components are aligned. Soft tissue air is noted from the surgical procedure. Impression: 1. Findings as noted above. Nothing acute is seen. Diagnostic code #2
--- NOTE | 2018-01-30 07:24 | PCM48HPAN ---
Post Anesthesia Note - EVALUATION WITHIN 48HRS OF ANESTHETIC Vital Signs in Normal Range: Yes Patient Participated in Evaluation: Yes Respiratory Function Stable: Yes Airway Patent: Yes Cardiovascular Function Stable: Yes Hydration Status Stable: Yes Pain Control Satisfactory: Yes Nausea and Vomiting Control Satisfactory: Yes Mental Status Recovered: Yes (no complaints- very little pain- very happy) Pulse Rate: 68 Resp Rate: 20 Temperature: 97.3 F Blood Pressure: 109/65
--- NOTE | 2018-01-30 07:50 | PCM.SURGPN ---
- General Info Date of Service: 01/30/18 POD#: 1 Functional Status: Reports: Pain Controlled, Tolerating Diet, Ambulating, Urinating, Incentive Spirometry, Other (The pt states he is doing very well. He states he has no pain at the hip, nor either ankle.) - Patient Data Vitals - Most Recent: Last Vital Signs Temp 97.3 F 01/30/18 07:24 Pulse 68 01/30/18 07:24 Resp 20 01/30/18 07:24 BP 109/65 01/30/18 07:24 Pulse Ox 93 L 01/30/18 03:49 Weight - Most Recent: 245 lb 1.6 oz I&O - Last 24 Hours: Intake & Output 01/29/18 01/30/18 01/30/18 22:59 06:59 14:59 Intake Total 350 450 Output Total 400 Balance 350 50 Lab Results Last 24 Hrs: Laboratory Results - last 24 hr 01/29/18 01/30/18 01/30/18 Range/Units 11:08 05:25 05:25 WBC 13.77 H (4.23-9.07) K/mm3 RBC 3.97 L (4.63-6.08) M/mm3 Hgb 12.4 L (13.7-17.5) gm/L Hct 38.6 L (40.1-51.0) % MCV 97.2 H (79.0-92.2) fl MCH 31.2 (25.7-32.2) pg MCHC 32.1 L (32.2-35.5) g/dl RDW Std Deviation 50.0 H (35.1-43.9) fL Plt Count 186 (163-337) K/mm3 MPV 10.4 (9.4-12.3) fl Sodium 139 (136-145) mEq/L Potassium 4.2 (3.5-5.1) mEq/L Chloride 106 (98-107) mEq/L Carbon Dioxide 25 (21-32) mEq/L Anion Gap 12.2 (5-15) BUN 19 H (7-18) mg/dL Creatinine 1.2 (0.7-1.3) mg/dL Est Cr Clr Drug Dosing 50.69 mL/min Estimated GFR (MDRD) 58 (>60) mL/min BUN/Creatinine Ratio 15.8 (14-18) Glucose 171 H (83-115) mg/dL Calcium 8.2 L (8.5-10.1) mg/dL Total Bilirubin 0.5 (0.2-1.0) mg/dL AST 25 (15-37) U/L ALT 28 (16-63) U/L Alkaline Phosphatase 80 (46-116) U/L Total Protein 6.0 L (6.4-8.2) g/dl Albumin 2.9 L (3.4-5.0) g/dl Globulin 3.1 gm/dL Albumin/Globulin Ratio 0.9 L (1-2) Blood Type A NEGATIVE Gel Antibody Screen Negative Med Orders - Current: Current Medications Aspirin (Halfprin) 81 mg PO DAILY [facility] Bisacodyl (Dulcolax) 5 mg PO DAILY PRN PRN Reason: Constipation Cyclobenzaprine HCl (Flexeril) 10 mg PO TID PRN PRN Reason: Spasms Last Admin: 01/30/18 03:57 Dose: 10 mg Docusate Sodium (Colace) 100 mg PO BID [facility] Last Admin: 01/29/18 20:56 Dose: 100 mg Famotidine (Pepcid) 20 mg PO Q12H [facility] Last Admin: 01/29/18 20:56 Dose: 20 mg Cefazolin Sodium/Dextrose 2 gm (/ Premix) 50 mls @ 100 mls/hr IV Q8H [facility] Stop: 01/30/18 11:59 Last Admin: 01/30/18 04:01 Dose: 100 mls/hr Levothyroxine Sodium (Synthroid) 50 mcg PO ACBREAKFAST [facility] Last Admin: 01/30/18 05:57 Dose: 50 mcg Magnesium Hydroxide (Milk Of Magnesia) 30 ml PO BID PRN PRN Reason: Constipation Morphine Sulfate (Morphine) 2 mg IVPUSH Q2H PRN PRN Reason: Breakthrough Pain Naloxone HCl (Narcan) 0.1 mg IVPUSH Q5M PRN PRN Reason: Oversedation Ondansetron HCl (Zofran) 4 mg IVPUSH Q6H PRN PRN Reason: Nausea/Vomiting Oxycodone/Acetaminophen (Percocet 325-5 Mg) 1 - 2 tab PO Q4H PRN PRN Reason: Pain Last Admin: 01/30/18 03:58 Dose: 2 tab Polyethylene Glycol (Miralax) 17 gm PO DAILY PRN PRN Reason: Constipation Rivaroxaban (Xarelto) 10 mg PO DAILY [facility] Senna (Senna) 8.6 mg PO BID PRN PRN Reason: Constipation Sodium Chloride (Saline Flush) 10 ml FLUSH ASDIRECTED PRN PRN Reason: Keep Vein Open Discontinued Medications Acetaminophen (Tylenol) 975 mg PO ONETIME [facility] Stop: 01/29/18 18:00 Last Admin: 01/29/18 12:20 Dose: 975 mg Albuterol (Proventil Hfa) Confirm Administered Dose 6.7 gm INH .STK-MED ONE Stop: 01/29/18 13:42 Albuterol (Proventil Neb Soln) 2.5 mg NEB ONETIME PRN PRN Reason: Shortness of Breath Stop: 01/29/18 16:00 Bupivacaine HCl (Marcaine 0.25%) Confirm Administered Dose 30 ml .ROUTE .STK- MED ONE Stop: 01/29/18 11:25 Last Admin: 01/29/18 14:18 Dose: 30 ml Bupivacaine HCl (Marcaine 0.25%) Confirm Administered Dose 30 ml .ROUTE .STK- MED ONE Stop: 01/29/18 11:44 Last Admin: 01/29/18 14:42 Dose: 4 ml Cefazolin Sodium (Ancef) Confirm Administered Dose 2 gm .ROUTE .STK-MED ONE Stop: 01/29/18 11:25 Last Admin: 01/29/18 14:11 Dose: 2 gm Cefazolin Sodium (Ancef) Confirm Administered Dose 2 gm .ROUTE .STK-MED ONE Stop: 01/29/18 11:30 Morphine Sulfate 8 mg/Epinephrine HCl 0.3 mg/Cefuroxime Sodium 750 mg/Sodium Chloride 27.9 ml 0 mg .XX ONETIME ONE Stop: 01/29/18 12:31 Last Admin: 01/29/18 14:16 Dose: 758.3 mg Dexamethasone (Dexamethasone) Confirm Administered Dose 4 mg .ROUTE .STK-MED ONE Stop: 01/29/18 11:30 Dexamethasone (Dexamethasone) Confirm Administered Dose 4 mg .ROUTE .STK-MED ONE Stop: 01/29/18 13:42 Diphenhydramine HCl (Benadryl) 25 mg IVPUSH Q6H PRN PRN Reason: Pruritis Stop: 01/29/18 16:00 Ephedrine Sulfate (Ephedrine In Ns) Confirm Administered Dose 25 mg .ROUTE .STK- MED ONE Stop: 01/29/18 13:42 Ephedrine Sulfate (Ephedrine In Ns) Confirm Administered Dose 25 mg .ROUTE .STK- MED ONE Stop: 01/29/18 13:55 Fentanyl (Sublimaze) Confirm Administered Dose 250 mcg .ROUTE .STK-MED ONE Stop: 01/29/18 11:30 Fentanyl (Sublimaze) 50 mcg IVPUSH Q5M PRN PRN Reason: Pain Stop: 01/29/18 16:00 Last Admin: 01/29/18 15:17 Dose: 50 mcg Hydromorphone HCl (Dilaudid) Confirm Administered Dose 0.5 mg .ROUTE .STK-MED ONE Stop: 01/29/18 12:08 Hydromorphone HCl (Dilaudid) Confirm Administered Dose 0.5 mg .ROUTE .STK-MED ONE Stop: 01/29/18 13:41 Hydromorphone HCl (Dilaudid) 0.5 mg IVPUSH ASDIRECTED PRN PRN Reason: Severe Pain Stop: 01/29/18 16:00 Lactated Ringer's (Ringers, Lactated) 1,000 mls @ 125 mls/hr IV ASDIRECTED [facility] Last Admin: 01/29/18 11:10 Dose: 125 mls/hr Lactated Ringer's (Ringers, Lactated) Confirm Administered Dose 1,000 mls @ as directed .ROUTE .STK-MED ONE Stop: 01/29/18 11:30 Lidocaine HCl (Xylocaine-Mpf 1%) Confirm Administered Dose 4 mls @ as directed .ROUTE .STK-MED ONE Stop: 01/29/18 11:31 Lactated Ringer's (Ringers, Lactated) Confirm Administered Dose 1,000 mls @ as directed .ROUTE .STK-MED ONE Stop: 01/29/18 14:02 Lactated Ringer's (Ringers, Lactated) Confirm Administered Dose 1,000 mls @ as directed .ROUTE .STK-MED ONE Stop: 01/29/18 14:02 Hetastarch/Sodium Chloride (Hetastarch 6% In Normal Saline) Confirm Administered Dose 500 mls @ as directed .ROUTE .STK-MED ONE Stop: 01/29/18 14:11 Iodine (Iodine 2% Mild Tincture) Confirm Administered Dose 30 ml .ROUTE .STK- MED ONE Stop: 01/29/18 11:25 Last Admin: 01/29/18 14:10 Dose: 18 ml Ketamine HCl (Ketalar) Confirm Administered Dose 500 mg .ROUTE .STK-MED ONE Stop: 01/29/18 11:31 Lidocaine/Sodium Bicarbonate (Buffered Lidocaine 1% In Ns 8.4%) 0.25 ml IDERM ONETIME PRN PRN Reason: Prior to IV Start Stop: 01/29/18 16:00 Last Admin: 01/29/18 11:09 Dose: 0.25 ml Midazolam HCl (Versed 1 Mg/Ml) Confirm Administered Dose 2 mg .ROUTE .ST-MED ONE Stop: 01/29/18 11:26 Ondansetron HCl (Zofran) Confirm Administered Dose 4 mg .ROUTE .ST-MED ONE Stop: 01/29/18 11:30 Ondansetron HCl (Zofran) 4 mg IVPUSH ONETIME PRN PRN Reason: Nausea/Vomiting Stop: 01/29/18 16:00 Oxycodone HCl (Oxycontin) 10 mg PO ONETIME [facility] Stop: 01/29/18 16:00 Last Admin: 01/29/18 12:19 Dose: 10 mg Phenylephrine HCl (Phenylephrine In Ns 100 Mcg/Ml) Confirm Administered Dose 1 mg .ROUTE .STK-MED ONE Stop: 01/29/18 13:41 Pregabalin (Lyrica) 50 mg PO ONETIME [facility] Stop: 01/29/18 16:00 Last Admin: 01/29/18 12:20 Dose: 50 mg Propofol (Diprivan 20 Ml) Confirm Administered Dose 400 mg .ROUTE .STK-MED ONE Stop: 01/29/18 11:30 Sildenafil Citrate (Revatio) 100 mg PO ASDIRECTED [facility] Tranexamic Acid (Cyklokapron) Confirm Administered Dose 1,000 mg .ROUTE .STK- MED ONE Stop: 01/29/18 11:25 Last Admin: 01/29/18 14:20 Dose: 1,000 mg Triamcinolone Acetonide (Kenalog-40) Confirm Administered Dose 80 mg .ROUTE .STK -MED ONE Stop: 01/29/18 11:44 Last Admin: 01/29/18 14:42 Dose: 80 mg Vancomycin HCl (Vancomycin) Confirm Administered Dose 1 gm .ROUTE .STK-MED ONE Stop: 01/29/18 11:25 - Exam Wound/Incisions: Dressing Dry and Intact General: Alert, Cooperative, No Acute Distress Lungs: Normal Respiratory Effort Extremities: Other (NVS intact for RLE. Tomi's negative for BLE. Right thigh soft, nontender.) - Problem List Review Problem List Initiated/Reviewed/Updated: Yes - My Orders Last 24 Hours: Active Orders 24 hr Category Date Time Status Cooling Warming Measures [RC] ASDIRECTED Care 01/29/18 13:50 Inactive Ready for Discharge [RC] PER UNIT ROUTINE Care 01/30/18 07:38 Active Vital Signs [RC] Q15M Care 01/29/18 13:50 Inactive Regular Diet [DIET] Diet 01/29/18 Lunch Active Aspirin [Halfprin] Med 01/30/18 09:00 Active 81 mg PO DAILY Docusate Sodium [Colace] Med 01/29/18 21:00 Active 100 mg PO BID Famotidine [Pepcid] Med 01/29/18 21:00 Active 20 mg PO Q12H Levothyroxine [Synthroid] Med 01/30/18 06:00 Active 50 mcg PO ACBREAKFAST Polyethylene Glycol 3350 [MiraLAX] Med 01/29/18 14:50 Active 17 gm PO DAILY PRN Rivaroxaban [Xarelto] Med 01/30/18 09:00 Active 10 mg PO DAILY ceFAZolin [Ancef] 2 gm Med 01/29/18 19:30 Active Premix Bag 1 bag IV Q8H Medication Orders Aspirin (Halfprin) 81 mg PO DAILY [facility] Bisacodyl (Dulcolax) 5 mg PO DAILY PRN PRN Reason: Constipation Cyclobenzaprine HCl (Flexeril) 10 mg PO TID PRN PRN Reason: Spasms Last Admin: 01/30/18 03:57 Dose: 10 mg Admin: 01/29/18 20:56 Dose: 10 mg Docusate Sodium (Colace) 100 mg PO BID [facility] Last Admin: 01/29/18 20:56 Dose: 100 mg Famotidine (Pepcid) 20 mg PO Q12H [facility] Last Admin: 01/29/18 20:56 Dose: 20 mg Cefazolin Sodium/Dextrose 2 gm (/ Premix) 50 mls @ 100 mls/hr IV Q8H [facility] Stop: 01/30/18 11:59 Last Admin: 01/30/18 04:01 Dose: 100 mls/hr Infusion: 01/29/18 19:15 Dose: 100 mls/hr Admin: 01/29/18 18:45 Dose: 100 mls/hr Levothyroxine Sodium (Synthroid) 50 mcg PO ACBREAKFAST [facility] Last Admin: 01/30/18 05:57 Dose: 50 mcg Magnesium Hydroxide (Milk Of Magnesia) 30 ml PO BID PRN PRN Reason: Constipation Morphine Sulfate (Morphine) 2 mg IVPUSH Q2H PRN PRN Reason: Breakthrough Pain Naloxone HCl (Narcan) 0.1 mg IVPUSH Q5M PRN PRN Reason: Oversedation Ondansetron HCl (Zofran) 4 mg IVPUSH Q6H PRN PRN Reason: Nausea/Vomiting Oxycodone/Acetaminophen (Percocet 325-5 Mg) 1 - 2 tab PO Q4H PRN PRN Reason: Pain Last Admin: 01/30/18 03:58 Dose: 2 tab Admin: 01/29/18 18:44 Dose: 2 tab Polyethylene Glycol (Miralax) 17 gm PO DAILY PRN PRN Reason: Constipation Rivaroxaban (Xarelto) 10 mg PO DAILY [facility] Senna (Senna) 8.6 mg PO BID PRN PRN Reason: Constipation Sodium Chloride (Saline Flush) 10 ml FLUSH ASDIRECTED PRN PRN Reason: Keep Vein Open - Assessment Assessment (Free Text/Narrative):: POD#1 - right HUI - Plan Plan (Free Text/Narrative):: 1. Hgb 12.4. 2. Xarelto for VTE prophylaxis (family hx VTE). 3. Discharge to home today. 4. Outpatient P.T. The pt's case was discussed with Dr. Bailey.
--- NOTE | 2018-01-30 07:59 | PCM.DCSUM1 ---
Discharge Summary - Hospital Course Brief History: Hussein is an 82 yo male who underwent right HUI and bilat ankle cortisone injections with Dr. Bailey on 01-29-2018. The procedure was completed under general anesthesia. The pt tolerated the procedure well and was admitted to the Medical-Surgical Unit. Medical management was provided by the Hospitalist service. The pt's Hospital course was uneventful. The pt's Hgb on POD#1 was 12.4. On POD#1, Xarelto 10mg PO daily was initiated for VTE prophylaxis. SCDs and TEDs were also ordered. A Mepilex dressing was placed at the incision site at the time of surgery and remained clean and dry. The pt participated in P.T. and O.T. and progressed well. He followed the HUI precautions. The pt was allowed to WBAT. On POD#1, the pt was deemed appropriate to discharge to home. - Discharge Data Discharge Date: 01/30/18 Discharge Disposition: Home, Self-Care 01 Condition: Good - Patient Summary/Data Consults: Consultations 01/29/18 06:39 Consult to Physician [CONS] Routine OT Evaluation and Treatment [CONS] Routine PT Evaluation and Treatment [CONS] Routine - Patient Instructions Diet: Usual Diet as Tolerated Activity: Apply Ice, As Tolerated, Elevate Extremity, Full Weight Bearing Activity, Other: Total hip precautions. Driving: Do Not Drive Showering/Bathing: May Shower Wound/Incision Care: Keep Operative Site/Wound Site Clean and Dry, Do NOT Change Dressing Notify Provider of: Fever, Increased Pain, Swelling and Redness, Drainage, Nausea and/or Vomiting Other/Special Instructions: Please get up and moving around EVERY HOUR while awake. This helps to prevent blood clots. Have help with mobility as needed. Please take the Xarelto blood thinner medication daily. Please wear the KENYON hose during the day and you may remove them at night. Please schedule for P.T. Complete the P.T. exercises and stretches that were instructed in the Hospital. Please use the pain medication and muscle relaxant as needed. The medication may cause drowsiness and/or constipation. You could use a stool softener like docusate sodium or Colace 100mg twice daily and/or a laxative like Miralax daily for constipation. Contact your primary care provider for further instructions if you are constipated. Try to wean from use of the pain medication as soon as able. Please do not use other medications that may cause drowsiness (other pain medications, anxiety pills, sleeping pills, allergy medications that cause drowsiness) while using the pain medication. Please do not use alcohol while using the pain medication. Use the incentive spirometer often. Please place ice to the hip often. Follow the total hip arthroplasty precautions. Please elevate the limb to decrease swelling. Keep the Mepilex dressing in place until follow-up. Please notify the Clinic if the dressing is saturated or rolls. Increase protein intake in your diet as this helps with healing. If you are a diabetic, please closely monitor your blood sugars and notify your primary care provider of your values. Elevated blood sugars increases the risk of infection. Please call [phone] with questions or concerns. - Discharge Plan *PRESCRIPTION DRUG MONITORING PROGRAM REVIEWED*: No *COPY OF PRESCRIPTION DRUG MONITORING REPORT IN PATIENT MIKAELA: No Prescriptions/Med Rec: Acetaminophen/oxyCODONE [Percocet 325-5 MG] 1 - 2 tab PO Q6H PRN #60 tablet PRN Reason: Pain Rivaroxaban [Xarelto] 10 mg PO DAILY #40 tablet Home Medications: Home Meds Levothyroxine [Synthroid] 50 mcg PO ACBREAKFAST 03/17/17 [History] Aspirin [Halfprin] 81 mg PO DAILY 01/29/18 [History] Polyethylene Glycol 3350 [Miralax] 1 dose PO DAILY PRN 01/29/18 [History] Sildenafil Citrate [Sildenafil] 100 mg PO ASDIRECTED 01/29/18 [History] Acetaminophen [Tylenol] 650 mg PO ASDIRECTED PRN #0 01/30/18 [Rx] Acetaminophen/oxyCODONE [Percocet 325-5 MG] 1 - 2 tab PO Q6H PRN #60 tablet 12/10 [Rx] Bisacodyl [Dulcolax] 5 mg PO DAILY PRN tablet 01/30/18 [Rx] Docusate Sodium [Colace] 100 mg PO BID cap 01/30/18 [Rx] Famotidine [Pepcid] 20 mg PO Q12H tablet 01/30/18 [Rx] Rivaroxaban [Xarelto] 10 mg PO DAILY #40 tablet 01/30/18 [Rx] Sennosides [Senna] 8.6 mg PO BID PRN tablet 01/30/18 [Rx] Patient Handouts: Total Hip Replacement, [id number], Hip Rehabilitation After Surgery, Total Hip Replacement, Care After, [id number] Referrals: Evette Cohen PA-C [Physician Yarn Handler] - - Patient Data Vitals - Most Recent: Last Vital Signs Temp 97.3 F 01/30/18 07:24 Pulse 68 01/30/18 07:24 Resp 20 01/30/18 07:24 BP 109/65 01/30/18 07:24 Pulse Ox 94 L 01/30/18 04:15 Weight - Most Recent: 245 lb 1.6 oz I&O - Last 24 hours: Intake & Output 01/29/18 01/30/18 01/30/18 22:59 06:59 14:59 Intake Total 350 450 Output Total 400 Balance 350 50 Lab Results - Last 24 hrs: Laboratory Results - last 24 hr 01/29/18 01/30/18 01/30/18 Range/Units 11:08 05:25 05:25 WBC 13.77 H (4.23-9.07) K/mm3 RBC 3.97 L (4.63-6.08) M/mm3 Hgb 12.4 L (13.7-17.5) gm/L Hct 38.6 L (40.1-51.0) % MCV 97.2 H (79.0-92.2) fl MCH 31.2 (25.7-32.2) pg MCHC 32.1 L (32.2-35.5) g/dl RDW Std Deviation 50.0 H (35.1-43.9) fL Plt Count 186 (163-337) K/mm3 MPV 10.4 (9.4-12.3) fl Sodium 139 (136-145) mEq/L Potassium 4.2 (3.5-5.1) mEq/L Chloride 106 (98-107) mEq/L Carbon Dioxide 25 (21-32) mEq/L Anion Gap 12.2 (5-15) BUN 19 H (7-18) mg/dL Creatinine 1.2 (0.7-1.3) mg/dL Est Cr Clr Drug Dosing 50.69 mL/min Estimated GFR (MDRD) 58 (>60) mL/min BUN/Creatinine Ratio 15.8 (14-18) Glucose 171 H (83-115) mg/dL Calcium 8.2 L (8.5-10.1) mg/dL Total Bilirubin 0.5 (0.2-1.0) mg/dL AST 25 (15-37) U/L ALT 28 (16-63) U/L Alkaline Phosphatase 80 (46-116) U/L Total Protein 6.0 L (6.4-8.2) g/dl Albumin 2.9 L (3.4-5.0) g/dl Globulin 3.1 gm/dL Albumin/Globulin Ratio 0.9 L (1-2) Blood Type A NEGATIVE Gel Antibody Screen Negative Med Orders - Current: Current Medications Aspirin (Halfprin) 81 mg PO DAILY [facility] Bisacodyl (Dulcolax) 5 mg PO DAILY PRN PRN Reason: Constipation Cyclobenzaprine HCl (Flexeril) 10 mg PO TID PRN PRN Reason: Spasms Last Admin: 01/30/18 03:57 Dose: 10 mg Docusate Sodium (Colace) 100 mg PO BID [facility] Last Admin: 01/29/18 20:56 Dose: 100 mg Famotidine (Pepcid) 20 mg PO Q12H [facility] Last Admin: 01/29/18 20:56 Dose: 20 mg Cefazolin Sodium/Dextrose 2 gm (/ Premix) 50 mls @ 100 mls/hr IV Q8H [facility] Stop: 01/30/18 11:59 Last Admin: 01/30/18 04:01 Dose: 100 mls/hr Levothyroxine Sodium (Synthroid) 50 mcg PO ACBREAKFAST [facility] Last Admin: 01/30/18 05:57 Dose: 50 mcg Magnesium Hydroxide (Milk Of Magnesia) 30 ml PO BID PRN PRN Reason: Constipation Morphine Sulfate (Morphine) 2 mg IVPUSH Q2H PRN PRN Reason: Breakthrough Pain Naloxone HCl (Narcan) 0.1 mg IVPUSH Q5M PRN PRN Reason: Oversedation Ondansetron HCl (Zofran) 4 mg IVPUSH Q6H PRN PRN Reason: Nausea/Vomiting Oxycodone/Acetaminophen (Percocet 325-5 Mg) 1 - 2 tab PO Q4H PRN PRN Reason: Pain Last Admin: 01/30/18 03:58 Dose: 2 tab Polyethylene Glycol (Miralax) 17 gm PO DAILY PRN PRN Reason: Constipation Rivaroxaban (Xarelto) 10 mg PO DAILY [facility] Senna (Senna) 8.6 mg PO BID PRN PRN Reason: Constipation Sodium Chloride (Saline Flush) 10 ml FLUSH ASDIRECTED PRN PRN Reason: Keep Vein Open Discontinued Medications Acetaminophen (Tylenol) 975 mg PO ONETIME [facility] Stop: 01/29/18 18:00 Last Admin: 01/29/18 12:20 Dose: 975 mg Albuterol (Proventil Hfa) Confirm Administered Dose 6.7 gm INH .STK-MED ONE Stop: 01/29/18 13:42 Albuterol (Proventil Neb Soln) 2.5 mg NEB ONETIME PRN PRN Reason: Shortness of Breath Stop: 01/29/18 16:00 Bupivacaine HCl (Marcaine 0.25%) Confirm Administered Dose 30 ml .ROUTE .STK- MED ONE Stop: 01/29/18 11:25 Last Admin: 01/29/18 14:18 Dose: 30 ml Bupivacaine HCl (Marcaine 0.25%) Confirm Administered Dose 30 ml .ROUTE .STK- MED ONE Stop: 01/29/18 11:44 Last Admin: 01/29/18 14:42 Dose: 4 ml Cefazolin Sodium (Ancef) Confirm Administered Dose 2 gm .ROUTE .STK-MED ONE Stop: 01/29/18 11:25 Last Admin: 01/29/18 14:11 Dose: 2 gm Cefazolin Sodium (Ancef) Confirm Administered Dose 2 gm .ROUTE .STK-MED ONE Stop: 01/29/18 11:30 Morphine Sulfate 8 mg/Epinephrine HCl 0.3 mg/Cefuroxime Sodium 750 mg/Sodium Chloride 27.9 ml 0 mg .XX ONETIME ONE Stop: 01/29/18 12:31 Last Admin: 01/29/18 14:16 Dose: 758.3 mg Dexamethasone (Dexamethasone) Confirm Administered Dose 4 mg .ROUTE .STK-MED ONE Stop: 01/29/18 11:30 Dexamethasone (Dexamethasone) Confirm Administered Dose 4 mg .ROUTE .STK-MED ONE Stop: 01/29/18 13:42 Diphenhydramine HCl (Benadryl) 25 mg IVPUSH Q6H PRN PRN Reason: Pruritis Stop: 01/29/18 16:00 Ephedrine Sulfate (Ephedrine In Ns) Confirm Administered Dose 25 mg .ROUTE .STK- MED ONE Stop: 01/29/18 13:42 Ephedrine Sulfate (Ephedrine In Ns) Confirm Administered Dose 25 mg .ROUTE .STK- MED ONE Stop: 01/29/18 13:55 Fentanyl (Sublimaze) Confirm Administered Dose 250 mcg .ROUTE .STK-MED ONE Stop: 01/29/18 11:30 Fentanyl (Sublimaze) 50 mcg IVPUSH Q5M PRN PRN Reason: Pain Stop: 01/29/18 16:00 Last Admin: 01/29/18 15:17 Dose: 50 mcg Hydromorphone HCl (Dilaudid) Confirm Administered Dose 0.5 mg .ROUTE .STK-MED ONE Stop: 01/29/18 12:08 Hydromorphone HCl (Dilaudid) Confirm Administered Dose 0.5 mg .ROUTE .STK-MED ONE Stop: 01/29/18 13:41 Hydromorphone HCl (Dilaudid) 0.5 mg IVPUSH ASDIRECTED PRN PRN Reason: Severe Pain Stop: 01/29/18 16:00 Lactated Ringer's (Ringers, Lactated) 1,000 mls @ 125 mls/hr IV ASDIRECTED [facility] Last Admin: 01/29/18 11:10 Dose: 125 mls/hr Lactated Ringer's (Ringers, Lactated) Confirm Administered Dose 1,000 mls @ as directed .ROUTE .STK-MED ONE Stop: 01/29/18 11:30 Lidocaine HCl (Xylocaine-Mpf 1%) Confirm Administered Dose 4 mls @ as directed .ROUTE .STK-MED ONE Stop: 01/29/18 11:31 Lactated Ringer's (Ringers, Lactated) Confirm Administered Dose 1,000 mls @ as directed .ROUTE .STK-MED ONE Stop: 01/29/18 14:02 Lactated Ringer's (Ringers, Lactated) Confirm Administered Dose 1,000 mls @ as directed .ROUTE .STK-MED ONE Stop: 01/29/18 14:02 Hetastarch/Sodium Chloride (Hetastarch 6% In Normal Saline) Confirm Administered Dose 500 mls @ as directed .ROUTE .STK-MED ONE Stop: 01/29/18 14:11 Iodine (Iodine 2% Mild Tincture) Confirm Administered Dose 30 ml .ROUTE .STK- MED ONE Stop: 01/29/18 11:25 Last Admin: 01/29/18 14:10 Dose: 18 ml Ketamine HCl (Ketalar) Confirm Administered Dose 500 mg .ROUTE .STK-MED ONE Stop: 01/29/18 11:31 Lidocaine/Sodium Bicarbonate (Buffered Lidocaine 1% In Ns 8.4%) 0.25 ml IDERM ONETIME PRN PRN Reason: Prior to IV Start Stop: 01/29/18 16:00 Last Admin: 01/29/18 11:09 Dose: 0.25 ml Midazolam HCl (Versed 1 Mg/Ml) Confirm Administered Dose 2 mg .ROUTE .STK-MED ONE Stop: 01/29/18 11:26 Ondansetron HCl (Zofran) Confirm Administered Dose 4 mg .ROUTE .STK-MED ONE Stop: 01/29/18 11:30 Ondansetron HCl (Zofran) 4 mg IVPUSH ONETIME PRN PRN Reason: Nausea/Vomiting Stop: 01/29/18 16:00 Oxycodone HCl (Oxycontin) 10 mg PO ONETIME [facility] Stop: 01/29/18 16:00 Last Admin: 01/29/18 12:19 Dose: 10 mg Phenylephrine HCl (Phenylephrine In Ns 100 Mcg/Ml) Confirm Administered Dose 1 mg .ROUTE .STK-MED ONE Stop: 01/29/18 13:41 Pregabalin (Lyrica) 50 mg PO ONETIME [facility] Stop: 01/29/18 16:00 Last Admin: 01/29/18 12:20 Dose: 50 mg Propofol (Diprivan 20 Ml) Confirm Administered Dose 400 mg .ROUTE .STK-MED ONE Stop: 01/29/18 11:30 Sildenafil Citrate (Revatio) 100 mg PO ASDIRECTED [facility] Tranexamic Acid (Cyklokapron) Confirm Administered Dose 1,000 mg .ROUTE .STK- MED ONE Stop: 01/29/18 11:25 Last Admin: 01/29/18 14:20 Dose: 1,000 mg Triamcinolone Acetonide (Kenalog-40) Confirm Administered Dose 80 mg .ROUTE .STK -MED ONE Stop: 01/29/18 11:44 Last Admin: 01/29/18 14:42 Dose: 80 mg Vancomycin HCl (Vancomycin) Confirm Administered Dose 1 gm .ROUTE .[facility] ONE Stop: 01/29/18 11:25
[2018-01-30] MEDS: Docusate Sodium 100 MG Cap PO SCH (08:12)
[2018-01-30] MEDS: Famotidine 20 MG Tab PO SCH (08:12)
[2018-01-30] MEDS ORDERED: Rivaroxaban 10 MG Tab PO SCH (09:00)
[2018-01-30] MEDS ORDERED: Aspirin 81 MG Tab.EC PO SCH (09:00)
--- NOTE | 2018-02-05 07:19 | PCM.OPNOTE ---
- General Post-Op/Procedure Note Date of Surgery/Procedure: 01/29/18 Operative Procedure(s): right total hip arthroplasty with bilateral ankle osteoarthritis Pre Op Diagnosis: right total hip osteoarthritis, bilateral ankle osteoarthritis Post-Op Diagnosis: Same Anesthesia Technique: Local, MAC, Spinal Primary Surgeon: Florentino Bailey Anesthesia Provider: Cecilia [employer] Programmer: Evette Cohen [employer] Programmer: Shalonda Huffman EBL in mLs: 800 Complications: None Condition: Good Free Text/Narrative:: size 64 48/28 mdm size 7 stem
--- NOTE | 2018-02-09 22:26 | OR ---
DATE OF OPERATION: 01/29/2018 SURGEON: Florentino Bailey MD OPERATION PERFORMED: Right total hip arthroplasty with bilateral ankle corticosteroid injections. PREOPERATIVE DIAGNOSIS: Right hip osteoarthrosis and bilateral ankle osteoarthrosis. 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 ANESTHESIA TECHNIQUE: Local MAC with spinal. ANESTHESIA PROVIDER: Anjana Hazel. CLOSING MANAGER: 1. Evette Cohen PA-C. 2. Shalonda Huffman LPN. ESTIMATED BLOOD LOSS: 800 mL. COMPLICATIONS: None. CONDITION: Stable. IMPLANTS: 1. [place] size 64 MDM solid Titanium acetabular cup. 2. A 48 x 28 mm MDM components. 3. Size 7 Malachi Accolade II stem. DESCRIPTION OF PROCEDURE: The patient was identified in the preoperative holding area. Proper site was marked and identified by the surgeon. The patient was taken back to the operating theater where a time-out was performed. Before patient was positioned for the total hip, 1 mL of 40 mg of Kenalog and 2 mL of 0.25% Marcaine were injected to the patient's bilateral ankles. At this time, the patient was placed in a left lateral decubitus position. Axillary roll was placed. All pegs were then were then well placed and were well padded. The patient's gluteal fold was parallel to the floor. Right hip was then sterilely prepped and draped in the usual sterile fashion. OR time-out was performed. The patient received 2 g of IV Ancef at this time. A standard posterior incision was made centered over the greater trochanter. This was taken down to the IT band and gluteal fascia which was incised along the incisional length. Charnley retractor was then placed. The short external rotators were then identified, and takedown of the short external rotators as well as a capsulotomy was done from piriformis down to the level of the lesser trochanter. At this time, the hip was dislocated, and a neck cut guide was placed. The neck cut was completed. Attention was turned to the acetabulum. Anterior and posterior acetabular retractors were placed. The remaining labrum was resected along with pulvinar. At this time, starting with a size 50 reamer, I was able to ream up to a 60 which was felt like it had good cortical chatter. At this time, I did attempt to place a 60 cup, but it did not have adequate bite, so I did feel like I had enough bone stuck that I could go up in reamer. I was able to go up to a 64 reamer which was found to have a better bite, and so a 64 mm solid Titanium acetabular cup was impacted into place in roughly 40 degrees of abduction and 20 degrees of anteversion. At this time, the MDM liner 48 mm was impacted into place. Attention was turned to the femur. At this time, box chisel was used out laterally. Starter awl was placed down the canal, and starting with the 0 broach, I was able to broach up to a size 7 which was found to be rotationally and vertically stable. At this time, the trial MDM components were assembled on the back table, and the hip was reduced. It was found to have adequate adventism of leg lengths and was stable throughout range of motion. At this time, the size 7 Accolade II stem was impacted into place with a 28 x 48 mm MDM. Components were constructed on the back table and then impacted onto the Accolade II stem. The hip was then reduced. It was brought through range of motion and found to be stable. At this time, a #5 Ethibond suture was used for closure of short external rotators and capsule. 1 L of dilute Betadine solution along with 3 L of pulse lavage irrigation with Ancef was then irrigated through the hip. Topical tranexamic acid as well as vancomycin powder was placed. A #2 barbed suture was used for closure of the IT band and gluteal fascia, 2-0 Vicryl was used subcutaneously, and Prineo was used for the skin. The patient was sent to PACU in stable condition. ANESTHESIA: MMODAL /[id number]
== END 2018-01-30 12:00 | disposition home or self-care (01) | DRG 470 ==
LOC: JD.MS 10:22
PROVIDERS: ADMIT Orthopaedic Surgery; ATTEND Orthopaedic Surgery
PROC: 0SR90JZ Replacement of Right Hip Joint with Synthetic Substitute, Open Approach (ICD-10-PCS; principal; 2018-01-29)
PROC: 3E0U3BZ Introduction of Anesthetic Agent into Joints, Percutaneous Approach (ICD-10-PCS; principal; 2018-01-29)
PROC: 3E0U029 Introduction of Other Anti-infective into Joints, Open Approach (ICD-10-PCS; principal; 2018-01-29)
PROC: 3E0U33Z Introduction of Anti-inflammatory into Joints, Percutaneous Approach (ICD-10-PCS; principal; 2018-01-29)
DX: M15.9 Polyosteoarthritis, unspecified (principal); E03.9 Hypothyroidism, unspecified; E78.2 Mixed hyperlipidemia; I25.10 Atherosclerotic heart disease of native coronary artery without angina pectoris; M41.50 Other secondary scoliosis, site unspecified; R97.20 Elevated prostate specific antigen [PSA]; E78.00 Pure hypercholesterolemia, unspecified; G89.29 Other chronic pain; K59.00 Constipation, unspecified; M48.07 Spinal stenosis, lumbosacral region; Z79.899 Other long term (current) drug therapy; Z88.8 Allergy status to other drugs, medicaments and biological substances; Z98.1 Arthrodesis status; Z96.653 Presence of artificial knee joint, bilateral; Z79.82 Long term (current) use of aspirin
CPT/HCPCS: 01214; 36415; 73501-26-RT; 73501-RT; 80053; 85027; 86140; 86850; 86900; 86901; 87641; 97110-GP; 97116-GP; 97161-GP; 97165-GO; 97535-GO; A9270-GY; C1776; J0171; J0690; J0697; J1100; J1170; J2001; J2250; J2270; J2370; J2405; J2704; J3010; J3301; J3370; J3490; J7050; J7120

== ENCOUNTER 2020-04-24 09:15 | Emergency (ER) | payer MEDICARE ==
[2020-04-24] MEDS ORDERED: Dextrose 5%-0.9% NaCl 1,000 ML IV SCH (09:30)
--- NOTE | 2020-04-24 09:31 | EDM.PDOC ---
ED HPI GENERAL MEDICAL PROBLEM - General Chief Complaint: Respiratory Problem Stated Complaint: COVID + Time Seen by Provider: 04/24/20 09:17 Source of Information: Reports: Patient History Limitations: Reports: Respiratory Distress - History of Present Illness INITIAL COMMENTS - FREE TEXT/NARRATIVE: 84-year-old male presents to the ED due to severe dyspnea. Diagnosed with COVI D-19 illness approximately 13 days ago. Apparently developed a cough and fever 2 days prior to being tested April 13. Continues to have fever and chills. Persistent nasal congestion paroxysmal cough with minimal sputum production. No hemoptysis. Generalized weakness. Estimated 10 to 12 pound weight loss over the last 13 days. Severe anorexia. No diarrhea. Loss of 10 sense of taste and smell. His is at home and she also has COVID-19 illness but apparently is recovering. O2 sats upon admission to the ED were 55% on room air. Onset: Gradual Onset Date: 04/11/20 Duration: Day(s):, Getting Worse Location: Reports: Chest (Paroxysmal minimally productive cough.), Generalized, Other (Neurolysed weakness and myalgia. Persistent high fever. Severe loss of appetite. Weight loss. Nasal congestion) Quality: Reports: Other Severity: Severe (Dyspnea at rest) Improves with: Reports: None Worsens with: Reports: Other Context: Reports: Other (1 "COVID-19 positive for the last 13 days). Denies: Activity, Exercise (Cavity or lying down.), Lifting, Sick Contact, Trauma Associated Symptoms: Reports: Confusion, Cough, cough w sputum, Diaphoresis, Fever/Chills, Headaches, Loss of Appetite, Malaise, Shortness of Breath, Weakness, Other (Generalized weakness). Denies: Chest Pain, Nausea/Vomiting, Rash, Seizure, Syncope Treatments SURGICAL SCRUB TECH: Reports: Acetaminophen - Related Data Allergies Allergy/AdvReac Type Severity Reaction Status Date / Time naproxen [From Aleve] Allergy Rash Verified 04/24/20 09:32 Home Meds: Home Meds Levothyroxine [Synthroid] 50 mcg PO ACBREAKFAST 03/17/17 [History] Aspirin [Halfprin] 81 mg PO DAILY 01/29/18 [History] Sildenafil Citrate 100 mg PO ASDIRECTED 01/29/18 [History] polyethylene glycoL 3350 [Miralax] 1 dose PO DAILY PRN 01/29/18 [History] Acetaminophen [Tylenol] 650 mg PO ASDIRECTED PRN #0 01/30/18 [Rx] Acetaminophen/oxyCODONE [Percocet 325-5 MG] 1 - 2 tab PO Q6H PRN #60 tablet 01/30/18 [Rx] Docusate Sodium [Colace] 100 mg PO BID cap 01/30/18 [Rx] Famotidine [Pepcid] 20 mg PO Q12H tablet 01/30/18 [Rx] Rivaroxaban [Xarelto] 10 mg PO DAILY #40 tablet 01/30/18 [Rx] Sennosides [Senna] 8.6 mg PO BID PRN tablet 01/30/18 [Rx] bisacodyL [Dulcolax] 5 mg PO DAILY PRN tablet 01/30/18 [Rx] Past Medical History - Past Health History Medical/Surgical History: Denies Medical/Surgical History Cardiovascular History: Reports: CAD, High Cholesterol Genitourinary History: Reports: Prostate Disorder Other Genitourinary History: elevated psa Musculoskeletal History: Reports: Back Pain, Chronic Endocrine/Metabolic History: Reports: Hypothyroidism (On levothyroxine supplementation) - Past Surgical History Musculoskeletal Surgical History: Reports: Knee Replacement, Other (See Below) Other Musculoskeletal Surgeries/Procedures:: back surgery 03/11/17 Social & Family History - Family History Family Medical History: No Pertinent Family History - Tobacco Use Tobacco Use Status *Q: Never Tobacco User - Caffeine Use Caffeine Use: Reports: Coffee Other Caffeine Use: 5 cups/day - Alcohol Use Alcohol Use History: Yes Days Per Week of Alcohol Use: 3 (Usually 1 beer per day.) - Living Situation & Occupation Living situation: Reports: Occupation: Retired ED ROS GENERAL - Review of Systems Review Of Systems: See Below Constitutional: Reports: Fever, Chills, Malaise, Weakness, Fatigue, Decreased Appetite (Or loss of appetite.), Weight Loss ( estimates at least 15 pounds of weight loss in 2 weeks) HEENT: Reports: Glasses, Other (Area dry mouth and tongue.) Respiratory: Reports: Shortness of Breath ( Nasally congestion.), Cough, Sputum. Denies: Wheezing, Pleuritic Chest Pain, Hemoptysis (No white sputum production) Cardiovascular: Reports: Dyspnea on Exertion. Denies: Blood Pressure Problem, Claudication, Lightheadedness, Orthopnea Endocrine: Reports: Fatigue GI/Abdominal: Reports: Anorexia, Nausea. 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 Denies: Tingling Psychiatric: Reports: No Symptoms Hematologic/Lymphatic: Reports: No Symptoms Immunologic: Reports: No Symptoms ED EXAM, GENERAL - Physical Exam Exam: See Below Exam Limited By: Respiratory Distress (Very respiratory distress tachypnea of 30 to 34/min. O2 sats 55% room air.) General Appearance: Severe Distress, Other (Temperature is 39.4 with a heart rate of 112 at the bedside. Respiratory to of 40/min with O2 sats of 55 to 57% room air. BP 06/19/1982.) Eye Exam: Bilateral Eye: Normal Inspection, PERRL (No scleral icterus or blepharal pallor.) Ears: Normal TMs Nose: Nasal Drainage, Clear Rhinorrhea Throat/Mouth: Other (Tongue is extremely dry and shriveled.) Head: Atraumatic, Normocephalic Neck: Normal Inspection, Limited Range of Motion (Loss of 10 degrees flexion and extension.). No: Carotid Bruit, Lymphadenopathy (L), Lymphadenopathy (R) Respiratory/Chest: Respiratory Distress (Very tachypnea at rest.), Decreased Breath Sounds. No: Lungs Clear, Normal Breath Sounds, Rales, Rhonchi, Wheezing (Decreased breath sounds to the 25% of lower lung willis bilaterally.) Cardiovascular: No Edema, No Gallop, No Murmur, No Rub. No: Normal Peripheral Pulses Peripheral Pulses: 2+: Carotid (L), Carotid (R), Posterior Tibial (L), Posterior Tibial (R), Dorsalis Pedis (L), Dorsalis Pedis (R) GI/Abdominal: Normal Bowel Sounds, Soft, Non-Tender, No Organomegaly, No Mass, Pelvis Stable, Other (Patient feels very warm to palpation.) Back Exam: Decreased Range of Motion (Known to have spinal fusion from T12-L6. Markedly decreased range of motion i.e. flexion.). No: Normal Inspection, CVA Tenderness (L), CVA Tenderness (R) Extremities: Non-Tender, No Pedal Edema, Other (Bilateral total knee replacements.). No: Normal Range of Motion Neurological: Alert, Oriented, CN II-XII Intact, Normal Cognition Psychiatric: Normal Affect, Normal Mood Skin Exam: Warm, Dry, Intact, Normal Color, No Rash #1 Interpretation EKG Date: 04/24/20 Time: 09:42 Rhythm: Other Rate (Beats/Min): 104 Lula: LAD-Left Lula Deviation (Minimal left axis deviation -2 degrees.) P-Wave: Enlarged (Sitter left atrial hypertrophy.) QRS: Other (Early R wave transition V2 consider right ventricular perjury versus septal hypertrophy pattern. Mildly decreased voltage limb leads.) ST-T: Normal (T wave flattening aVL aVF nonspecific finding) QT: Normal EKG Interpretation Comments: Abnormal ECG Course - Vital Signs Last Recorded V/S: Last Vital Signs Temp 39.4 C H 04/24/20 09:48 Pulse 106 H 04/24/20 09:34 Resp 40 H 04/24/20 09:34 BP 125/83 04/24/20 09:34 Pulse Ox 57 L 04/24/20 09:34 - Orders/Labs/Meds Orders: Active Orders 24 hr Category Date Time Status BIPAP Adult [RT BiPAP/CPAP] [RC] ASDIRECTED Care 04/24/20 12:34 Active EKG Documentation Completion [RC] STAT Care 04/24/20 09:26 Active Oxygen Therapy [RC] ASDIRECTED Care 04/24/20 09:28 Active Oxygen Therapy [RC] ASDIRECTED Care 04/24/20 09:44 Active Chest 1V Frontal [CR] Stat Exams 04/24/20 09:26 Taken CULTURE BLOOD [BC] Stat Lab 04/24/20 10:22 Received CULTURE BLOOD [BC] Stat Lab 04/24/20 10:30 Received HEPATIC FUNCTION PANEL,HFP [CHEM] DAILY Lab 04/25/20 12:45 Ordered HEPATIC FUNCTION PANEL,HFP [CHEM] DAILY Lab 04/26/20 12:45 Ordered HEPATIC FUNCTION PANEL,HFP [CHEM] DAILY Lab 04/27/20 12:45 Ordered HEPATIC FUNCTION PANEL,HFP [CHEM] DAILY Lab 04/28/20 12:45 Ordered URINALYSIS W/MICROSCOPIC [UA W/MICROSCOPIC] [URIN] Stat Lab 04/24/20 09:31 Ordered Dextrose 5%-0.9% NaCl [Dextrose 5%-Normal Saline] 1,000 Med 04/24/20 09:30 Active ml IV ASDIRECTED Remdesivir 200 mg Med 04/24/20 13:00 Active Sodium Chloride 0.9% [Normal Saline] 250 ml IV ONETIME Blood Culture x2 Reflex Set [OM.PC] Stat Oth 04/24/20 09:30 Ordered Medication Orders Dextrose/Sodium Chloride (Dextrose 5%-Normal Saline) 1,000 mls @ 125 mls/hr IV ASDIRECTED NANDA Last Admin: 04/24/20 09:48 Dose: 125 mls/hr Documented by: RADHACHR Remdesivir 200 mg/ Sodium (Chloride) 250 mls @ 250 mls/hr IV ONETIME ONE Stop: 04/24/20 13:59 Labs: Laboratory Tests 04/24/20 04/24/20 04/24/20 Range/Units 09:25 09:25 09:25 WBC 15.56 H (4.23-9.07) K/mm3 RBC 4.55 L (4.63-6.08) M/mm3 Hgb 14.5 D (13.7-17.5) gm/dl Hct 43.1 (40.1-51.0) % MCV 94.7 H (79.0-92.2) fl MCH 31.9 (25.7-32.2) pg MCHC 33.6 (32.2-35.5) g/dl RDW Std Deviation 47.8 H (35.1-43.9) fL Plt Count 338 H D (163-337) K/mm3 MPV 9.8 (9.4-12.3) fl Neut % (Auto) 60.2 (34.0-67.9) % Lymph % (Auto) 32.5 (21.8-53.1) % [place] % (Auto) 7.0 (5.3-12.2) % Eos % (Auto) 0 L (0.8-7.0) Baso % (Auto) 0.3 (0.1-1.2) % Neut # (Auto) 9.38 H (1.78-5.38) K/mm3 Lymph # (Auto) 5.05 H (1.32-3.57) K/mm3 [place] # (Auto) 1.09 H (0.30-0.82) K/mm3 Eos # (Auto) 0.00 L (0.04-0.54) K/mm3 Baso # (Auto) 0.04 (0.01-0.08) K/mm3 Manual Slide Review Normal smear ESR (0-15) mm/hr PT 11.9 (9.7-12.0) SECONDS INR 1.11 APTT 27.3 (21.7-31.4) SECONDS D-Dimer, Quantitative (0.19-0.50) mg/L Puncture Site ABG pH (7.35-7.45) ABG pCO2 (35.0-45.0) mmHg ABG pO2 (80.0-100.0) mmHg ABG HCO3 (22.0-26.0) meq/L ABG O2 Saturation (96.0-97.0) % ABG Base Excess (-2-2.0) Qamar Test A-a Gradient mmHg O2 Delivery Device Oxygen Flow Rate FiO2 (21.00-100.00) % Sodium 136 (136-145) mEq/L Potassium 3.8 (3.5-5.1) mEq/L Chloride 99 (98-107) mEq/L Carbon Dioxide 25 (21-32) mEq/L Anion Gap 15.8 H (5-15) BUN 28 H (7-18) mg/dL Creatinine 1.5 H (0.7-1.3) mg/dL Est Cr Clr Drug Dosing 39.20 mL/min Estimated GFR (MDRD) 45 (>60) mL/min BUN/Creatinine Ratio 18.7 H (14-18) Glucose 125 H (83-115) mg/dL Calcium 9.2 (8.5-10.1) mg/dL Magnesium 2.4 (1.8-2.4) mg/dl Ferritin (26-388) ng/ml Total Bilirubin 0.9 (0.2-1.0) mg/dL AST 50 H (15-37) U/L ALT 60 (16-63) U/L Alkaline Phosphatase 185 H (46-116) U/L Lactate Dehydrogenase 401 H (85-227) U/L CK-MB (CK-2) 1.5 (0-3.6) ng/ml Troponin I 0.227 H* (0.00-0.056) ng/mL C-Reactive Protein 32.3 H* (<1.0) mg/dL NT-Pro-B Natriuret Pep (0-450) pg/mL Total Protein 7.5 (6.4-8.2) g/dl Albumin 2.8 L (3.4-5.0) g/dl Globulin 4.7 gm/dL Albumin/Globulin Ratio 0.6 L (1-2) 04/24/20 04/24/20 04/24/20 Range/Units 09:25 09:25 09:25 WBC (4.23-9.07) K/mm3 RBC (4.63-6.08) M/mm3 Hgb (13.7-17.5) gm/dl Hct (40.1-51.0) % MCV (79.0-92.2) fl MCH (25.7-32.2) pg MCHC (32.2-35.5) g/dl RDW Std Deviation (35.1-43.9) fL Plt Count (163-337) K/mm3 MPV (9.4-12.3) fl Neut % (Auto) (34.0-67.9) % Lymph % (Auto) (21.8-53.1) % [place] % (Auto) (5.3-12.2) % Eos % (Auto) (0.8-7.0) Baso % (Auto) (0.1-1.2) % Neut # (Auto) (1.78-5.38) K/mm3 Lymph # (Auto) (1.32-3.57) K/mm3 [place] # (Auto) (0.30-0.82) K/mm3 Eos # (Auto) (0.04-0.54) K/mm3 Baso # (Auto) (0.01-0.08) K/mm3 Manual Slide Review ESR 49 H (0-15) mm/hr PT (9.7-12.0) SECONDS INR APTT (21.7-31.4) SECONDS D-Dimer, Quantitative 2.79 H (0.19-0.50) mg/L Puncture Site ABG pH (7.35-7.45) ABG pCO2 (35.0-45.0) mmHg ABG pO2 (80.0-100.0) mmHg ABG HCO3 (22.0-26.0) meq/L ABG O2 Saturation (96.0-97.0) % ABG Base Excess (-2-2.0) Qamar Test A-a Gradient mmHg O2 Delivery Device Oxygen Flow Rate FiO2 (21.00-100.00) % Sodium (136-145) mEq/L Potassium (3.5-5.1) mEq/L Chloride (98-107) mEq/L Carbon Dioxide (21-32) mEq/L Anion Gap (5-15) BUN (7-18) mg/dL Creatinine (0.7-1.3) mg/dL Est Cr Clr Drug Dosing mL/min Estimated GFR (MDRD) (>60) mL/min BUN/Creatinine Ratio (14-18) Glucose (83-115) mg/dL Calcium (8.5-10.1) mg/dL Magnesium (1.8-2.4) mg/dl Ferritin 509 H (26-388) ng/ml Total Bilirubin (0.2-1.0) mg/dL AST (15-37) U/L ALT (16-63) U/L Alkaline Phosphatase (46-116) U/L Lactate Dehydrogenase (85-227) U/L CK-MB (CK-2) (0-3.6) ng/ml Troponin I (0.00-0.056) ng/mL C-Reactive Protein (<1.0) mg/dL NT-Pro-B Natriuret Pep (0-450) pg/mL Total Protein (6.4-8.2) g/dl Albumin (3.4-5.0) g/dl Globulin gm/dL Albumin/Globulin Ratio (1-2) 04/24/20 04/24/20 Range/Units 09:25 09:30 WBC (4.23-9.07) K/mm3 RBC (4.63-6.08) M/mm3 Hgb (13.7-17.5) gm/dl Hct (40.1-51.0) % MCV (79.0-92.2) fl MCH (25.7-32.2) pg MCHC (32.2-35.5) g/dl RDW Std Deviation (35.1-43.9) fL Plt Count (163-337) K/mm3 MPV (9.4-12.3) fl Neut % (Auto) (34.0-67.9) % Lymph % (Auto) (21.8-53.1) % [place] % (Auto) (5.3-12.2) % Eos % (Auto) (0.8-7.0) Baso % (Auto) (0.1-1.2) % Neut # (Auto) (1.78-5.38) K/mm3 Lymph # (Auto) (1.32-3.57) K/mm3 [place] # (Auto) (0.30-0.82) K/mm3 Eos # (Auto) (0.04-0.54) K/mm3 Baso # (Auto) (0.01-0.08) K/mm3 Manual Slide Review ESR (0-15) mm/hr PT (9.7-12.0) SECONDS INR APTT (21.7-31.4) SECONDS D-Dimer, Quantitative (0.19-0.50) mg/L Puncture Site Rt radial ABG pH 7.45 (7.35-7.45) ABG pCO2 32.3 L (35.0-45.0) mmHg ABG pO2 65.0 L (80.0-100.0) mmHg ABG HCO3 22.2 (22.0-26.0) meq/L ABG O2 Saturation 89.0 L (96.0-97.0) % ABG Base Excess -0.5 (-2-2.0) Qamar Test Positive A-a Gradient 608 mmHg O2 Delivery Device Nonrebreather Oxygen Flow Rate 15.0 FiO2 100.00 (21.00-100.00) % Sodium (136-145) mEq/L Potassium (3.5-5.1) mEq/L Chloride (98-107) mEq/L Carbon Dioxide (21-32) mEq/L Anion Gap (5-15) BUN (7-18) mg/dL Creatinine (0.7-1.3) mg/dL Est Cr Clr Drug Dosing mL/min Estimated GFR (MDRD) (>60) mL/min BUN/Creatinine Ratio (14-18) Glucose (83-115) mg/dL Calcium (8.5-10.1) mg/dL Magnesium (1.8-2.4) mg/dl Ferritin (26-388) ng/ml Total Bilirubin (0.2-1.0) mg/dL AST (15-37) U/L ALT (16-63) U/L Alkaline Phosphatase (46-116) U/L Lactate Dehydrogenase (85-227) U/L CK-MB (CK-2) (0-3.6) ng/ml Troponin I (0.00-0.056) ng/mL C-Reactive Protein (<1.0) mg/dL NT-Pro-B Natriuret Pep 1297 H (0-450) pg/mL Total Protein (6.4-8.2) g/dl Albumin (3.4-5.0) g/dl Globulin gm/dL Albumin/Globulin Ratio (1-2) Meds: Medications Generic Name Dose Route Start Last Admin Trade Name Freq PRN Reason Stop Dose Admin Dextrose/Sodium Chloride 1,000 mls @ 125 mls/hr 04/24/20 09:30 04/24/20 09:48 Dextrose 5%-Normal Saline IV 125 mls/hr ASDIRECTED NANDA Administration Remdesivir 200 mg/ Sodium 250 mls @ 250 mls/hr 04/24/20 13:00 Chloride IV 04/24/20 13:59 ONETIME ONE Discontinued Medications Generic Name Dose Route Start Last Admin Trade Name Freq PRN Reason Stop Dose Admin Dexamethasone 6 mg 04/24/20 12:35 Decadron IVPUSH 04/24/20 12:36 ONETIME ONE Dexamethasone Confirm 04/24/20 12:57 04/24/20 13:01 Decadron Administered 04/24/20 12:58 Not Given Dose 4 mg .ROUTE .STK-MED ONE Remdesivir 200 mg/ Sodium 250 mls @ 250 mls/hr 04/24/20 12:36 Chloride IV 04/24/20 12:37 ONETIME ONE Remdesivir 200 mg/ Sodium 250 mls @ 250 mls/hr 04/24/20 13:00 Chloride IV 04/24/20 13:59 ONETIME ONE Ibuprofen Confirm 04/24/20 09:34 04/24/20 09:48 Motrin Administered 04/24/20 09:35 Not Given Dose 600 mg .ROUTE .STK-MED ONE Ibuprofen 600 mg 04/24/20 09:47 04/24/20 09:48 Motrin PO 04/24/20 09:48 600 mg ONETIME ONE Administration - Radiology Interpretation Free Text/Narrative:: 84-year-old male presents to the ED with severe dyspnea and hypoxemia. Patient was diagnosed with COVID-19 positive approximately 13 days ago. Severe paroxysmal minimally productive cough. Severe anorexia with dehydration. Intermittent confusion as reported by his . Persistent high fever of 102.6. O2 sats were 55% on room air. Plan placed on nonrebreather at 15 L/min to achieve O2 sats of 90%. Apparently he took Tylenol earlier this morning for fever. Remains very high. Will be given Motrin 600 mg p.o. D5 Ringer's lactate at 125 mils per hour until we assess fluid status. Chest x-ray and routine labs for COVID-19 illness. - Re-Assessments/Exams Free Text/Narrative Re-Assessment/Exam: 04/24/20 10:15: ABGs reveal a pH of 7.45 with a PCO2 of 32.3. PO2 was less than 65. O2 sats reported to be 91.5% on 15 L per simple mask. 04/24/20 12:00: Chest x-ray reveals pneumonia in all 5 lobes. Mild cardiomegaly. O2 sats have stayed around 89 to 90% on 15 L. We will trial him on BiPAP when RT gets time to start it. Patient will require admission to [facility]. There are no beds available in [place] at this time. Will discuss possibility of a bed in [place] for this patient.White count is elevated at 15.56 and he has not been on steroids. Differential shows 60% neutrophils on the auto differential. Hemoglobin is 14.5 with hematocrit of 43.1. MCV is mildly elevated at 94.7. Platelet counts 338,000. Sed rate is 49. PT is 11.9 with an INR of 1.11. PTT is 27.3. D-dimer is elevated at 2.79. Blood gases revealed a pH of 7.45 with PCO2 of 32.3. PO2 is 65.0. O2 sats 89% on nonrebreather at 15 L/min. Chemistry shows a sodium of 136 and a potassium of 3.8. Chloride is 99 with a bicarb of 25. And a gap is 15.8. BUN is 28 with a creatinine of 1.5 GFR is 45. Glucose 125 with a calcium of 9.2. Magnesium 2.4 ferritin elevated at 509. Total bilirubin is 0.9. AST mildly elevated at 50 ALT at 60. Alk phos is mildly elevated at 185. LDH is 401. CK-MB fraction is 1.5. Troponin I is elevated at 0.227. C-reactive protein markedly elevated at 32.3. BNP is 1297. Total protein is 7.4 with an albumin fraction low at 2.8. Urinalysis is not yet become available. 04/24/2020: 12:30: Spoke with the 1 call nurse at [facility]. Spoke with Dr. Angeles--hospitalist and the patient will be sent to the Covid unit at [facility] in [place] per airplane. Doing well on BiPAP at 15/9 to maintain O2 sats of 94% . Patient will receive remdesivir 200 mg IV. Dexamethasone 6 mg IV. I did discuss the case with the patient's Bertha Prescott. She also has COVID-19 illness and is on day 13 of illness and doing well. Departure - Departure Time of Disposition: 13:15 Disposition: DC/Tfer to Acute Hospital 02 Preliminary Cause of *Q: Respiratory Failure Condition: Serious Clinical Impression: COVID-19 determined by clinical diagnostic criteria, Elevated troponin I measurement, Elevated d-dimer, Hypoxia - Discharge Information *PRESCRIPTION DRUG MONITORING PROGRAM REVIEWED*: Not Applicable *COPY OF PRESCRIPTION DRUG MONITORING REPORT IN PATIENT MIKAELA: Not Applicable Referrals: Giovanni Barton MD [Primary Care Provider] - Forms: ED Department Discharge Additional Instructions: Patient to be transferred to the Covid unit at [facility] in [place]--[facility]. We will send by airplane since we do not have an ambulance availability to transport him to that facility. No beds were available in [place] at this time. Sepsis Event Note (ED) - Focused Exam Vital Signs: Vital Signs Temp Temp Pulse Resp BP Pulse Ox 04/24/20 09:48 39.4 C H 04/24/20 09:34 39.4 C H 106 H 40 H 125/83 57 L - My Orders Last 24 Hours: My Active Orders 04/24/20 09:26 EKG Documentation Completion [RC] STAT Chest 1V Frontal [CR] Stat 04/24/20 09:28 Oxygen Therapy [RC] ASDIRECTED 04/24/20 09:30 Dextrose 5%-0.9% NaCl [Dextrose 5%-Normal Saline] 1,000 ml IV ASDIRECTED Blood Culture x2 Reflex Set [OM.PC] Stat 04/24/20 09:31 URINALYSIS W/MICROSCOPIC [UA W/MICROSCOPIC] [URIN] Stat 04/24/20 09:44 Oxygen Therapy [RC] ASDIRECTED 04/24/20 10:22 CULTURE BLOOD [BC] Stat 04/24/20 10:30 CULTURE BLOOD [BC] Stat 04/24/20 12:34 BIPAP Adult [RT BiPAP/CPAP] [RC] ASDIRECTED 04/24/20 13:00 Remdesivir 200 mg Sodium Chloride 0.9% [Normal Saline] 250 ml IV ONETIME 04/25/20 12:45 HEPATIC FUNCTION PANEL,HFP [CHEM] DAILY 04/26/20 12:45 HEPATIC FUNCTION PANEL,HFP [CHEM] DAILY 04/27/20 12:45 HEPATIC FUNCTION PANEL,HFP [CHEM] DAILY 04/28/20 12:45 HEPATIC FUNCTION PANEL,HFP [CHEM] DAILY - Assessment/Plan Last 24 Hours: My Active Orders 04/24/20 09:26 EKG Documentation Completion [RC] STAT Chest 1V Frontal [CR] Stat 04/24/20 09:28 Oxygen Therapy [RC] ASDIRECTED 04/24/20 09:30 Dextrose 5%-0.9% NaCl [Dextrose 5%-Normal Saline] 1,000 ml IV ASDIRECTED Blood Culture x2 Reflex Set [OM.PC] Stat 04/24/20 09:31 URINALYSIS W/MICROSCOPIC [UA W/MICROSCOPIC] [URIN] Stat 04/24/20 09:44 Oxygen Therapy [RC] ASDIRECTED 04/24/20 10:22 CULTURE BLOOD [BC] Stat 04/24/20 10:30 CULTURE BLOOD [BC] Stat 04/24/20 12:34 BIPAP Adult [RT BiPAP/CPAP] [RC] ASDIRECTED 04/24/20 13:00 Remdesivir 200 mg Sodium Chloride 0.9% [Normal Saline] 250 ml IV ONETIME 04/25/20 12:45 HEPATIC FUNCTION PANEL,HFP [CHEM] DAILY 12/02/20 12:45 HEPATIC FUNCTION PANEL,HFP [CHEM] DAILY 04/27/20 12:45 HEPATIC FUNCTION PANEL,HFP [CHEM] DAILY 04/28/20 12:45 HEPATIC FUNCTION PANEL,HFP [CHEM] DAILY
[2020-04-24] MEDS ORDERED: Ibuprofen 600 MG Tab ONE (09:34)
[2020-04-24] MEDS ORDERED: Ibuprofen 600 MG Tab PO ONE (09:47)
[2020-04-24] MEDS ORDERED: Dexamethasone 4 MG/ML SDV IVPUSH ONE (12:35)
[2020-04-24] MEDS ORDERED: REMDESIVIR 200 MG in Sodium Chloride 0.9% 250 ML IV ONE ×5 (12:36→13:00)
[2020-04-24] MEDS ORDERED: Dexamethasone 4 MG/ML SDV ONE (12:57)
--- NOTE | 2020-04-24 14:06 | CR ---
PROCEDURE INFORMATION: Exam: XR Chest, 1 View Exam date and time: 04/24/2020 10:52 AM Age: 84 years old Clinical indication: Dyspnea TECHNIQUE: Imaging protocol: XR of the chest Views: 1 view. COMPARISON: No relevant prior studies available. FINDINGS: Lungs: Multifocal peripheral airspace opacity is present concerning for multilobar pneumonia. Consider atypical/viral etiologies. Pleural space: Unremarkable. No pleural effusion. No pneumothorax. Heart/Mediastinum: Heart size is mildly prominent. Bones/joints: Unremarkable. IMPRESSION: Multifocal airspace opacity compatible with multilobar pneumonia. Consider atypical/viral etiologies. Thank you for allowing us to participate in the care of your patient. Dictated and Authenticated by: Anand Amaya MD 04/24/2020 12:22 PM Central Time ([place] & [place]) [facility]ITALFredis
== END 2020-04-24 12:35 ==
LOC: JD.ED 09:15
DX: U07.1 COVID-19 (principal); I25.10 Atherosclerotic heart disease of native coronary artery without angina pectoris; E03.9 Hypothyroidism, unspecified; R79.1 Abnormal coagulation profile; R79.89 Other specified abnormal findings of blood chemistry; R09.02 Hypoxemia; Z88.8 Allergy status to other drugs, medicaments and biological substances; Z79.82 Long term (current) use of aspirin; Z79.01 Long term (current) use of anticoagulants; Z79.899 Other long term (current) drug therapy
CPT/HCPCS: 36415; 36600; 71045; 80053; 82553; 82728; 82803; 83615; 83735; 83880; 84484; 85025; 85379; 85610; 85652; 85730; 86140; 87040; 93005; 94762; 96374; 99285; A9270; J1100; J7042; J7050; 93010

== ENCOUNTER 2023-05-08 16:18 | Emergency (ER) | payer MEDICARE | END 2023-05-08 18:08 | disposition left against medical advice (07) | LOC: JD.ED 16:18 | DX: Z53.21 Procedure and treatment not carried out due to patient leaving prior to being seen by health care provider (principal) ==

== ENCOUNTER 2024-04-20 15:25 | Emergency (ER) | payer MEDICARE ==
[2024-04-20] MEDS ORDERED: Lidocaine 1% 10 ML MDV INJECT ONE (15:39)
[2024-04-20] MEDS ORDERED: Lidocaine 1% 10 ML MDV ONE (16:23)
== END 2024-04-20 17:05 | disposition home or self-care (01) ==
LOC: JD.ED 15:25
DX: T81.30XA Disruption of wound, unspecified, initial encounter (principal); I25.10 Atherosclerotic heart disease of native coronary artery without angina pectoris; E03.9 Hypothyroidism, unspecified; Z86.16 Personal history of COVID-19; Z90.49 Acquired absence of other specified parts of digestive tract; Z88.8 Allergy status to other drugs, medicaments and biological substances; Z79.82 Long term (current) use of aspirin; Z79.890 Hormone replacement therapy; Z79.01 Long term (current) use of anticoagulants; Z79.899 Other long term (current) drug therapy
CPT/HCPCS: 12013; 12020; 99283; 99284